=== PATIENT | female | born 1950 | race Caucasian/White ===

== ENCOUNTER 2019-08-01 11:09 | Emergency (ER) | payer MEDICARE, MEDICAID, SELFPAY ==
--- NOTE | 2019-08-01 11:12 | ED_ITS ---
HPI - Abdominal Pain General: Chief Complaint: Abdominal Pain Stated Complaint: ABD PAIN Time Seen by Provider: 08/01/19 11:12 Source: patient Mode of arrival: ambulatory Limitations: no limitations History of Present Illness: HPI narrative: Patient is a 68-year-old female who presents to ED today with complaints of nausea and vomiting over the past week. Patient tells me she is not able to hold much down including her medications. Patient states she has not noticed any blood in her vomit. She states she is defecating and urinating normally however she has noticed some black stools that she attributes to Pepto use. She reports pain to her epigastric region. She does tell me she has a history of a hiatal hernia. Has not been running fevers. Patient tells me that she gets a upset stomach often and will sometimes have nausea and vomiting however it never lasts this long. Patient is not able to tell me any of her past medical history nor any of the medications that she takes or why. MD elicited complaint: abdominal pain and other (N/V) Onset (ago): day(s) Location: Epigastric Associated Symptoms: Reports nausea, vomiting and other (does report black stools from Pepto use); Denies change in bowel habits, chills, constipation, diarrhea, dysuria, excessive flatus, fever(s), hematochezia, fecal incontinence and syncope Review of Systems General: Reports: 10 or more systems reviewed and unremarkable except in HPI and below Const: Denies: fever, chills, body aches, change in appetite, change in weight, fatigue or malaise Eyes: Denies: change in vision, blurry vision or photophobia ENMT: Denies: throat pain, enlarged tonsils or painful swallowing Card: Reports: shortness of breath when lying down (chronic due to COPD); Denies: chest pain, palpitations, irregular heart rhythm, edema, swelling of feet/ankles, lightheadedness, syncope or pre-syncope Resp: Denies: coughing up blood GI: Reports: abdominal pain, nausea, vomiting and other (does report black stools from Pepto use); Denies: diarrhea, constipation, excessive passing of gas, fecal incontinence, change in bowel habits, painful bowel movements, rectal pain, blood in stool, mucus in stool, white/light colored stool or fatty stool : Denies: flank pain, difficulty urinating, painful urination, urinary frequency, urinary urgency or urinary hesitancy Musc: Denies: neck pain or back pain Skin/Breast: Denies: rash Neuro: Denies: headache, numbness in extremities, weakness in extremities or changes in sensation PFSH ED PFSH: Social History Smoking and tobacco status: current every day smoker Physical Exam Const: COMMON NORMALS: no apparent distress, oriented x3, no limitations and alert NUTRITIONAL APPEARANCE: obese Resp: COMMON NORMALS: normal respiratory effort and clear to auscultation bilaterally AUSCULTATION: clear to auscultation bilaterally Cardio: COMMON NORMALS: regular rate and regular rhythm RATE: regular rate RHYTHM: regular rhythm GI: COMMON NORMALS: normal to inspection, nondistended, normoactive bowel sounds, soft to palpation, no hepatosplenomegaly and no masses PALPATION: Yes soft, Yes tender (mild LUQ) and Yes no hepatosplenomegaly RECTAL EXAM: heme negative stool : COMMON NORMALS: Yes no CVA tenderness BLADDER/KIDNEY EXAM: Yes no CVA tenderness Back/Pelvis: COMMON NORMALS: no CVA tenderness Extremity: COMMON NORMALS: normal to inspection Neuro: COMMON NORMALS: oriented x3 SENSORIUM/ORIENTATION: Yes alert Skin: COMMON NORMALS: no rashes or lesions noted GENERAL SKIN EXAM: no rashes or lesions noted Course Vital Signs: Vital signs: Vital Signs Temperature 98.3 F 08/01/19 11:19 Pulse Rate 107 H 08/01/19 13:56 Respiratory Rate 18 08/01/19 13:56 Blood Pressure 148/109 08/01/19 13:56 Pulse Oximetry 98 08/01/19 13:56 MDM - Abdominal Pain MDM Narrative: Medical decision making narrative: Patient feels better after IV fluids and IV Zofran as well as pain medications. Patient is requesting to go home. Patient was able to hold down p.o. fluids here without vomiting. On patient's lab she has a mildly elevated white count at 13.3, mild hypokalemia at 3.1-she was given p.o. replacement for this, and mildly elevated BUN/Cr at 37/2.1 (most recent for comparison was from 2017). Patient does tell me she has a history of stage III kidney disease. Patient CTs scan does not show any emergent process. Again patient is requesting to be discharged. Strict return to ED precautions given. She was already given a prescription for Zofran on her last PCP visit on 07/25 that she may use for nausea and vomiting. Lab Data: Labs: Lab Results 08/01/19 08/01/19 08/01/19 Range/Units 11:50 11:50 11:50 WBC 13.3 H (4.0-10.0) 10^3/ uL RBC 4.90 (4.1-5.3) 10^6/u L Hgb 13.1 (11.5-15.3) g/dL Hct 43.1 (37.0-47.0) % MCV 88.0 (81-99) fL MCH 26.7 L (28.0-34.0) pg MCHC 30.4 (30.0-36.0) g/dL RDW 16.1 H (12.1-15.1) % Plt Count 591 H (130-400) 10^3/c mm MPV 9.3 (7.4-10.4) fL Neut % (Auto) 83.4 % Lymph % (Auto) 8.7 % Mckean % (Auto) 6.3 % Eos % (Auto) 0.5 % Baso % (Auto) 0.3 % Neut # (Auto) 11.1 H (1.8-7.7) 10^3/u L Lymph # (Auto) 1.2 (0.8-4.8) 10^3/u L Mckean # (Auto) 0.8 (0.2-0.9) 10^3/u L Eos # (Auto) 0.1 (0.0-0.8) 10^3/u L Baso # (Auto) 0.0 (0.0-0.1) 10^3/u L Nucleated RBC % (a uto) 0.2 % Nucleated RBCs # 0.0 /100WBC Specimen Type Sample Site ABG pH (7.35-7.45) ABG pCO2 (35-45) mmHg ABG pO2 (80.0-100.0) mmH g ABG HCO3 (22-26) mmol/L ABG O2 Saturation ABG Base Excess (-2.0-2.0) mmol/ L Jarvis Test A-a O2 Gradient (5-10) mmHg Hematocrit (37-47) % Hgb O2 Saturation (95-100) % Carboxyhemoglobin (0.4-20.1) %THgb Methemoglobin (0.4-1.5) % Total Hemoglobin (12-16) g/dL Ionized Calcium (1.1-1.4) mmol/L O2 Delivery Device O2 Liters/Min % FiO2 % Charging Plug Placer ID Sodium 133 L (136-145) mmol/L Potassium 3.1 L (3.5-5.1) mmol/L Chloride 81 L (98-107) mmol/L Carbon Dioxide 35 H (22-29) mmol/L Anion Gap 20.1 H (5-19) BUN 37 H (8-23) mg/dL Creatinine 2.1 H (0.5-0.9) mg/dL GFR Calculation 23.4 L (90-130) mL/min Glucose 167 H (65-115) mg/dL Calculated Osmolal ity 277 L (285-295) mOsm/k g Calcium 9.5 (8.5-10.5) mg/dL Magnesium (1.7-2.3) mg/dL Total Bilirubin 0.4 (0.15-1.2) mg/dL AST 16 (0-32) U/L ALT 12 (0-33) U/L Alkaline Phosphata se 125 H (35-105) IU/L Total Protein 7.8 (6.6-8.7) g/dL Albumin 3.8 (3.5-5.2) g/dL Globulin 4.0 (1.3-4.6) g/dL Lipase 7 L (13-60) U/L Urine Color (Yellow) Urine Appearance (CLEAR) Urine pH (5-7) Ur Specific Gravit y (1.005-1.030) Urine Protein (Negative) Urine Glucose (UA) (Normal) Urine Ketones (Negative) Urine Blood (Negative) Urine Nitrate (Negative) Urine Bilirubin (NEGATIVE) Urine Urobilinogen (Negative) mg/dL Ur Leukocyte Lynette ase (Negative) Urine Opiates Scre en (Negative) ng/mL Ur Barbiturates Sc reen (Negative) ng/mL Ur Phencyclidine S crn (Negative) ng/mL Ur Amphetamines Sc reen (Negative) ng/mL U Benzodiazepines Scrn (Negative) ng/mL Urine Cocaine Scre en (Negative) ng/mL U Marijuana (THC) Screen (Negative) ng/mL Serum Ketones Negative (Negative) 08/01/19 08/01/19 08/01/19 Range/Units 11:50 13:07 14:04 WBC (4.0-10.0) 10^3/ uL RBC (4.1-5.3) 10^6/u L Hgb (11.5-15.3) g/dL Hct (37.0-47.0) % MCV (81-99) fL MCH (28.0-34.0) pg MCHC (30.0-36.0) g/dL RDW (12.1-15.1) % Plt Count (130-400) 10^3/c mm MPV (7.4-10.4) fL Neut % (Auto) % Lymph % (Auto) % Mckean % (Auto) % Eos % (Auto) % Baso % (Auto) % Neut # (Auto) (1.8-7.7) 10^3/u L Lymph # (Auto) (0.8-4.8) 10^3/u L Mckean # (Auto) (0.2-0.9) 10^3/u L Eos # (Auto) (0.0-0.8) 10^3/u L Baso # (Auto) (0.0-0.1) 10^3/u L Nucleated RBC % (a uto) % Nucleated RBCs # /100WBC Specimen Type Arterial Sample Site Brachial, left ABG pH 7.52 H (7.35-7.45) ABG pCO2 49.6 H (35-45) mmHg ABG pO2 104.0 H (80.0-100.0) mmH g ABG HCO3 40.1 H (22-26) mmol/L ABG O2 Saturation 96.5 ABG Base Excess 15.0 H (-2.0-2.0) mmol/ L Jarvis Test Pos A-a O2 Gradient 32.5 H (5-10) mmHg Hematocrit 40.1 (37-47) % Hgb O2 Saturation 94.9 L (95-100) % Carboxyhemoglobin 0.7 (0.4-20.1) %THgb Methemoglobin 1.0 (0.4-1.5) % Total Hemoglobin 13.1 (12-16) g/dL Ionized Calcium 1.1 (1.1-1.4) mmol/L O2 Delivery Device Nc O2 Liters/Min 2.0 % FiO2 28.0 % Charging Plug Placer ID cak Sodium 133.0 (136-145) mmol/L Potassium 2.7 L (3.5-5.1) mmol/L Chloride (98-107) mmol/L Carbon Dioxide (22-29) mmol/L Anion Gap (5-19) BUN (8-23) mg/dL Creatinine (0.5-0.9) mg/dL GFR Calculation (90-130) mL/min Glucose 120.0 H (65-115) mg/dL Calculated Osmolal ity (285-295) mOsm/k g Calcium (8.5-10.5) mg/dL Magnesium 3.4 H (1.7-2.3) mg/dL Total Bilirubin (0.15-1.2) mg/dL AST (0-32) U/L ALT (0-33) U/L Alkaline Phosphata se (35-105) IU/L Total Protein (6.6-8.7) g/dL Albumin (3.5-5.2) g/dL Globulin (1.3-4.6) g/dL Lipase (13-60) U/L Urine Color Yellow (Yellow) Urine Appearance Clear (CLEAR) Urine pH 7 (5-7) Ur Specific Gravit y 1.010 (1.005-1.030) Urine Protein Neg (Negative) Urine Glucose (UA) Norm (Normal) Urine Ketones 1+ H (Negative) Urine Blood Neg (Negative) Urine Nitrate Negative (Negative) Urine Bilirubin 1+ H (NEGATIVE) Urine Urobilinogen 1 H (Negative) mg/dL Ur Leukocyte Lynette ase Negative (Negative) Urine Opiates Scre en (Negative) ng/mL Ur Barbiturates Sc reen (Negative) ng/mL Ur Phencyclidine S crn (Negative) ng/mL Ur Amphetamines Sc reen (Negative) ng/mL U Benzodiazepines Scrn (Negative) ng/mL Urine Cocaine Scre en (Negative) ng/mL U Marijuana (THC) Screen (Negative) ng/mL Serum Ketones (Negative) 08/01/19 Range/Units 14:04 WBC (4.0-10.0) 10^3/ uL RBC (4.1-5.3) 10^6/u L Hgb (11.5-15.3) g/dL Hct (37.0-47.0) % MCV (81-99) fL MCH (28.0-34.0) pg MCHC (30.0-36.0) g/dL RDW (12.1-15.1) % Plt Count (130-400) 10^3/c mm MPV (7.4-10.4) fL Neut % (Auto) % Lymph % (Auto) % Mckean % (Auto) % Eos % (Auto) % Baso % (Auto) % Neut # (Auto) (1.8-7.7) 10^3/u L Lymph # (Auto) (0.8-4.8) 10^3/u L Mckean # (Auto) (0.2-0.9) 10^3/u L Eos # (Auto) (0.0-0.8) 10^3/u L Baso # (Auto) (0.0-0.1) 10^3/u L Nucleated RBC % (a uto) % Nucleated RBCs # /100WBC Specimen Type Sample Site ABG pH (7.35-7.45) ABG pCO2 (35-45) mmHg ABG pO2 (80.0-100.0) mmH g ABG HCO3 (22-26) mmol/L ABG O2 Saturation ABG Base Excess (-2.0-2.0) mmol/ L Jarvis Test A-a O2 Gradient (5-10) mmHg Hematocrit (37-47) % Hgb O2 Saturation (95-100) % Carboxyhemoglobin (0.4-20.1) %THgb Methemoglobin (0.4-1.5) % Total Hemoglobin (12-16) g/dL Ionized Calcium (1.1-1.4) mmol/L O2 Delivery Device O2 Liters/Min % FiO2 % Charging Plug Placer ID Sodium (136-145) mmol/L Potassium (3.5-5.1) mmol/L Chloride (98-107) mmol/L Carbon Dioxide (22-29) mmol/L Anion Gap (5-19) BUN (8-23) mg/dL Creatinine (0.5-0.9) mg/dL GFR Calculation (90-130) mL/min Glucose (65-115) mg/dL Calculated Osmolal ity (285-295) mOsm/k g Calcium (8.5-10.5) mg/dL Magnesium (1.7-2.3) mg/dL Total Bilirubin (0.15-1.2) mg/dL AST (0-32) U/L ALT (0-33) U/L Alkaline Phosphata se (35-105) IU/L Total Protein (6.6-8.7) g/dL Albumin (3.5-5.2) g/dL Globulin (1.3-4.6) g/dL Lipase (13-60) U/L Urine Color (Yellow) Urine Appearance (CLEAR) Urine pH (5-7) Ur Specific Gravit y (1.005-1.030) Urine Protein (Negative) Urine Glucose (UA) (Normal) Urine Ketones (Negative) Urine Blood (Negative) Urine Nitrate (Negative) Urine Bilirubin (NEGATIVE) Urine Urobilinogen (Negative) mg/dL Ur Leukocyte Lynette ase (Negative) Urine Opiates Scre en Positive H (Negative) ng/mL Ur Barbiturates Sc reen Negative (Negative) ng/mL Ur Phencyclidine S crn Negative (Negative) ng/mL Ur Amphetamines Sc reen Negative (Negative) ng/mL U Benzodiazepines Scrn Positive H (Negative) ng/mL Urine Cocaine Scre en Negative (Negative) ng/mL U Marijuana (THC) Screen Negative (Negative) ng/mL Serum Ketones (Negative) Imaging Data ^: CT Abd/Pel: Radiologist's impression: [place] [address] CT Scan Report Signed Patient: Nina Kang Unit #: [id number] : [id number] Age/Sex: 68 / F ADM Date: 08/01/19 Loc: ER Room/Bed: Attending Dr: Ordering Provider/Ordering MD: Marine Ace Date of Service: 08/01/19 Procedure(s): CT abdomen pelvis con [id number] Accession Number(s): [id number] Report Number: [id number] WS: [id number] CT ABDOMEN PELVIS TECHNIQUE: Noncontrast CT of the abdomen and pelvis with coronal and sagittal reformatted images. CLINICAL INFORMATION: upper abdominal pain; N/V COMPARISON: None. DLP: 1716.[address] scans at [facility] use at least one of these dose optimization techniques: automated exposure control; mA and/or kV adjustment per patient size (includes targeted exams where dose is matched to clinical indication); or iterative reconstruction. FINDINGS: Cholecystectomy with physiologic extra hepatic biliary ductal dilatation unchanged. Prior hysterectomy. Surgical clips at the GE junction consistent with prior hiatal hernia repair. Low- attenuation lesion involving the right hepatic lobe at the falciform ligament measuring 2.0 x 2.3 cm likely represents hepatic cyst or hemangioma. This is new from 2017 and could be followed up with ultrasound. Diffuse fatty atrophy of the pancreas. Stable 14 mm right adrenal adenoma. Left adrenal gland is normal. No hydronephrosis. Emphysematous changes in the lung bases. Chronic fibrosis in both lung bases. Normal caliber abdominal aorta. Mild aortic calcification. Normal sigmoid colon. Prior appendectomy. No evidence of small or large bowel obstruction. No periaortic or pelvic lymphadenopathy. No inguinal lymphadenopathy. CT/CT abdomen pelvis wo con [id number] IMPRESSION: 1. Sigmoid colon is normal in appearance. No evidence of small or large bowel obstruction. 2. No free fluid in the abdomen or pelvis. 3. Prior cholecystectomy with stable extrahepatic biliary ductal dilatation. 4. Stable small right adrenal adenoma. 5. Diffuse fatty atrophy of the pancreas unchanged. 6. Low-attenuation lesion in the right hepatic lobe adjacent to the falciform ligament may represent hepatic cyst or hemangioma measuring 2.3 x 2.0 cm. This can be followed up with ultrasound. Dictated By: Jose Alejandro Neville MD Signed By: Jose Alejandro Neville MD Signed Date/Time: 08/01/19 1418 DD/ 1406 Discharge Plan Discharge Patient Disposition: Home, Self-Care Clinical Impression: Nausea and vomiting Qualifiers: Vomiting type: unspecified Vomiting Intractability: non-intractable Qualified Code(s): R11.2 - Nausea with vomiting, unspecified Condition: Stable Prescriptions: No Action metolazone 2.5 mg Tablet 2.5 mg PO DAILY RF: 0 fentanyl 50 mcg/hr Patch 72 Hour 1 patch TRANSDERMAL Q72H RF: 0 albuterol sulfate 2.5 mg /3 mL (0.083 %) Solution For Nebulization 2.5 mg INHALATION Q4H PRN (Reason: Shortness Of Breath) RF: 0 hydrocodone-acetaminophen 5-325 mg Tablet 1 tab PO Q6H PRN (Reason: Pain) RF: 0 Cartia XT 240 mg Capsule,Extended Release 24hr 240 mg PO DAILY RF: 0 Zofran 4 mg Tablet 4 mg PO Q8H PRN (Reason: Nausea) RF: 0 gabapentin 400 mg Capsule 400 mg PO BID RF: 0 levothyroxine 75 mcg Tablet 75 mcg PO DAILY RF: 0 prednisone 2.5 mg Tablet 2.5 mg PO DAILY RF: 0 pantoprazole 40 mg Tablet,Delayed Release (Dr/Ec) 40 mg PO DAILY RF: 0 Nitrostat 0.4 mg Tablet, Sublingual 0.4 mg SUBLINGUAL Q5M PRN (Reason: Chest Pain) RF: 0 Cartia XT 120 mg Capsule,Extended Release 24hr 120 mg PO DAILY RF: 0 montelukast 10 mg Tablet 10 mg PO DAILY RF: 0 Lasix 20 mg Tablet 20 mg PO DAILY RF: 0 Ativan 1 mg Tablet 1 mg PO Q6H PRN (Reason: Anxiety) RF: 0 simethicone 125 mg Tablet 125 mg PO DAILY PRN (Reason: Gastric Reflux) RF: 0 fluticasone propionate 50 mcg/actuation Roy,Suspension 1 spray INTRANASAL BID RF: 0 duloxetine 60 mg Capsule,Delayed Release(Dr/Ec) 60 mg PO DAILY RF: 0 Breo Ellipta 100-25 mcg/dose Blister With Device 1 inh INHALATION DAILY RF: 0 potassium chloride 20 mEq Tablet Extended Release 20 meq PO DAILY RF: 0 Discharge Orders: Discharge Order (Routine); Ordered 08/01/19 Ordered By: Marine Ace Referrals: Diomedes Wei DO [Primary Care Provider] - Grady Rodriguez MD [Family Provider] - Discharge Diet: Usual diet Discharge Activity: Increase activity as tolerated Patient Instructions: Acute Nausea and Vomiting (ED) Activity Restrictions/Additional Instructions: Try taking one of your Zofran tablets 15 to 20 minutes prior to drinking or eating to help with nausea and vomiting. Please follow-up with your PCP in 3 to 5 days if symptoms still persist. Coding Level of Care Code ED Financial Services Consultant for Chg Fwd Exam Detailed
[2019-08-01 11:14] VITALS: BMI 46.0
[2019-08-01 11:19] VITALS: BP 133/95; PULSE 94; RESP 18; TEMP 36.8; O2SAT 94
[2019-08-01 11:57] LABS: Basophils % 0.3 %; Eosinophils # 0.1 10^3/uL (0.0-0.8); Eosinophils % 0.5 %; Hematocrit 43.1 % (37.0-47.0); Hemoglobin 13.1 g/dL (11.5-15.3); Lymphocytes # 1.2 10^3/uL (0.8-4.8); Lymphocytes % 8.7 %; Mean Corpuscular HGB Conc 30.4 g/dL (30.0-36.0); Mean Corpuscular Hemoglobin 26.7 pg (28.0-34.0); Mean Platelet Volume 9.3 fL (7.4-10.4); Monocytes # 0.8 10^3/uL (0.2-0.9); Monocytes % 6.3 %; Neutrophils # 11.1 10^3/uL (1.8-7.7); Neutrophils % 83.4 %; Nucleated Red Blood Cells % 0.2 %; Platelet Count 591 10^3/cmm (130-400); Red Cell Distribution Width 16.1 % (12.1-15.1); White Blood Count 13.3 10^3/uL (4.0-10.0)
[2019-08-01 12:12] LABS: Alanine Aminotransferase 12 U/L (0-33); Albumin Level 3.8 g/dL (3.5-5.2); Alkaline Phosphatase 125 IU/L (35-105); Anion Gap 20.1 (5-19); Aspartate Amino Transferase 16 U/L (0-32); Blood Urea Nitrogen 37 mg/dL (8-23); Calcium 9.5 mg/dL (8.5-10.5); Carbon Dioxide 35 mmol/L (22-29); Chloride 81 mmol/L (98-107); Glomerular Filtration Rate 23.4 mL/min (90-130); Glucose 167 mg/dL (65-115); Lipase 7 U/L (13-60); Osmolality Calculated 277 mOsm/kg (285-295); Potassium 3.1 mmol/L (3.5-5.1); Sodium 133 mmol/L (136-145); Total Bilirubin 0.4 mg/dL (0.15-1.2); Total Protein 7.8 g/dL (6.6-8.7)
--- NOTE | 2019-08-01 12:12 | PC.NURSE ---
ATEMPTED TO START IV X2 WITHOUT SUCCESS. ANOTHER NURSE TO ATTEMPT. REPORT TO [facility] TURNED OVER
--- NOTE | 2019-08-01 12:17 | CT_ITS ---
WS: [id number] CT ABDOMEN PELVIS TECHNIQUE: Noncontrast CT of the abdomen and pelvis with coronal and sagittal reformatted images. CLINICAL INFORMATION: upper abdominal pain; N/V COMPARISON: None. DLP: 1716.[address] scans at [facility] use at least one of these dose optimization techniques: automat ed exposure control; mA and/or kV adjustment per patient size (includes targeted exams where dose is matched to clinical indication); or iterative reconstruction. FINDINGS: Cholecystectomy with physiologic extra hepatic biliary ductal dilatation unchanged. Prior hysterectom y. Surgical clips at the GE junction consistent with prior hiatal hernia repair. Low-attenuation lesi on involving the right hepatic lobe at the falciform ligament measuring 2.0 x 2.3 cm likely represent s hepatic cyst or hemangioma. This is new from 2017 and could be followed up with ultrasound. Diffuse fatty atrophy of the pancreas. Stable 14 mm right adrenal adenoma. Left adrenal gland is norm al. No hydronephrosis. Emphysematous changes in the lung bases. Chronic fibrosis in both lung bases. Normal caliber abdomina l aorta. Mild aortic calcification. Normal sigmoid colon. Prior appendectomy. No evidence of small or large bowel obstruction. No periaortic or pelvic lymphadenopathy. No inguinal lymphadenopathy. CT/CT abdomen pelvis wo con [id number] IMPRESSION: 1. Sigmoid colon is normal in appearance. No evidence of small or large bowel obstruction. 2. No free fluid in the abdomen or pelvis. 3. Prior cholecystectomy with stable extrahepatic biliary ductal dilatation. 4. Stable small right adrenal adenoma. 5. Diffuse fatty atrophy of the pancreas unchanged. 6. Low-attenuation lesion in the right hepatic lobe adjacent to the falciform ligament may represent hepatic cyst or hemangioma measuring 2.3 x 2.0 cm. This can be followed up with ultrasound.
[2019-08-01 12:43] LABS: Ketone (Acetest) Serum Negative (Negative)
[2019-08-01 12:50] LABS: Magnesium 3.4 mg/dL (1.7-2.3)
[2019-08-01] MEDS: ondansetron 2 mg/ML SDV 2 mL 4 MG IVP (13:05)
[2019-08-01] MEDS: morphine 4 mg/mL SDV 1 mL IVP (13:05)
[2019-08-01] MEDS: sodium chloride 0.9% 1,000 ML 999 ML IV (13:05)
[2019-08-01 13:19] LABS: ABG PCO2 49.6 mmHg (35-45); ABG PH Result 7.52 (7.35-7.45); Alveolar-Arterial Oxygen Gradi 32.5 mmHg (5-10); Arterial Blood Gas Hematocrit 40.1 % (37-47); Blood Gas Allen Test Pos; Blood Gas Sample Site Brachial, left; Blood Gas Sample Type Arterial; Carboxyhemoglobin 0.7 %THgb (0.4-20.1); HCO3 ABG 40.1 mmol/L (22-26); HGB O2 Sat 94.9 % (95-100); Ionized Calcium Level - ABG 1.1 mmol/L (1.1-1.4); Oxygen Device NC; Oxygen Saturation ABG 96.5; Potassium Level - ABG 2.7 mmol/L (3.5-5.0); Total Hemoglobin 13.1 g/dL (12-16)
[2019-08-01 13:56] VITALS: BP 148/109; PULSE 107; RESP 18; O2SAT 98
[2019-08-01 14:22] LABS: Add Urine Microscopic? NO
[2019-08-01 14:42] LABS: Amphetamines Screen Urine Negative (Negative); Barbiturates Screen Urine Negative (Negative); Benzodiazepines Screen Urine Positive (Negative); Cocaine Screen Urine Negative (Negative); Opiate Screen Urine Positive (Negative); PCP Screen Urine Negative (Negative); THC Screen Urine Negative (Negative)
[2019-08-01 14:52] LABS: Bilirubin Urine 1+ (NEGATIVE); Blood Urine Neg (Negative); Glucose Urine UA Norm (Normal); Ketones Urine 1+ (Negative); Leukocyte Esterase Urine Negative (Negative); Nitrate Urine Negative (Negative); Protein Urine Neg (Negative); Urine Appearance Clear (CLEAR); Urine Color Yellow (Yellow); Urobilinogen Urine 1 mg/dL (Negative); pH Urine 7 (5-7)
[2019-08-01 15:38] VITALS: BP 112/86; PULSE 105; RESP 18; O2SAT 96
== END 2019-08-01 16:17 | disposition home or self-care (01) ==
PROVIDERS: Emergency Provider Physician Assistant; Family Provider Family Medicine; PCP Family Medicine
DX: R11.2 Nausea with vomiting, unspecified (principal); E87.6 Hypokalemia; N18.3 Chronic kidney disease, stage 3 (moderate); F17.200 Nicotine dependence, unspecified, uncomplicated
CPT/HCPCS: 12345; 36415; 36600; 74176; 80051; 80053; 80306; 81003; 82009; 82810; 83690; 83735; 83986; 85025; 96361; 96374; 96375; 99283; J2270; J2405; J7030

== ENCOUNTER 2019-08-19 06:51 | Inpatient (IN) | payer MEDICARE, MEDICAID, SELFPAY ==
[2019-08-19] VITALS (17 sets, daily range): BP systolic 99–133; BP diastolic 62–88; PULSE 98–130; RESP 16–26; TEMP 36.4–36.8; O2SAT 94–100; BMI 45.4
--- NOTE | 2019-08-19 07:01 | ED_ITS ---
HPI - Abdominal Pain General: Chief Complaint: Abdominal Pain Stated Complaint: ABD PAIN Time Seen by Provider: 08/19/19 07:01 History of Present Illness: HPI narrative: 68-year-old female presents with complaints of 3 days of nausea and vomiting. She is not had a bowel movement for the last 4 to 5 days. She denies any hematochezia or melena she denies any fever she has noted some dysuria and urgency of urination. She localizes pain to the left side generally a little bit more to the left lower quadrant. She denies any hematemesis coffee-ground emesis or melena. She has had a cough is been mildly productive this is chronic and her sputum has not changed in color or character. She denies a fever. MD elicited complaint: abdominal pain Associated Symptoms: Reports dysuria, nausea and vomiting; Denies bloating, chills, coffee ground emesis, constipation, diarrhea, fever(s), hematochezia, hematemesis and melena Review of Systems Const: Denies: fever, chills, body aches, change in appetite, fatigue or malaise ENMT: Denies: throat pain, ear pain, nasal discharge or nasal congestion Card: Denies: chest pain, edema, shortness of breath on exertion or shortness of breath when lying down Resp: Denies: shortness of breath, productive cough or non-productive cough GI: Reports: abdominal pain, nausea and vomiting; Denies: vomiting blood, coffee grounds in vomit, diarrhea, constipation, bloa ting, blood in stool or black tarry stool : Reports: painful urination and urinary frequency; Denies: flank pain, difficulty urinating or urinary urgency Skin/Breast: Denies: rash or itching PFSH ED PFSH: Medical History Afib Arm fracture CHF (congestive heart failure) Depression with anxiety GERD (gastroesophageal reflux disease) Gout Hiatal hernia HTN (hypertension) Hypothyroidism IBS (irritable bowel syndrome) Nasal sinus polyp UTI (urinary tract infection) Surgical History H/O hernia repair H/O sinus surgery History of appendectomy History of cholecystectomy History of hysterectomy History of tonsillectomy and adenoidectomy Family History Father CAD (coronary artery disease) Cancer Social History Smoking and tobacco status: current every day smoker cigarettes Years cigarettes smoked: 54 Quit status (tobacco): not considering quitting Alcohol intake: never Caregiver/support person: Yes Lives independently: Yes Household members: none Marital status: / Current occupational status: retired and disabled History of recent travel: No Current gender identity: Female Physical Exam Const: COMMON NORMALS: no apparent distress GENERAL APPEARANCE: cooperative and comfortable ORIENTATION/CONSCIOUSNESS: Yes awake, Yes oriented to person, Yes oriented to place and Yes oriented to time HENMT: COMMON NORMALS: normocephalic, head/scalp atraumatic, hearing grossly normal bilaterally, external ears normal, EAC's normal, TM's normal bilaterally, nasal mucous membranes and turbinates normal, moist oral mucous membranes and oropharynx normal HEAD & SCALP: normocephalic and atraumatic NOSE: nasal mucous membranes and turbinates normal EXTERNAL EAR: Yes external ears normal EXTERNAL AUDITORY CANAL: EAC's normal TYMPANIC MEMBRANE: TM's normal bilaterally Eye: COMMON NORMALS: PERRL, EOMs intact bilaterally, conjunctivae normal and no scleral icterus CONJUNCTIVA: Yes conjunctivae normal PUPIL: Yes PERRL Neck/C-Spine: COMMON NORMALS: full ROM, no lymphadenopathy, supple and no JVD Lymph: LYMPHATIC: no lymphadenopathy noted and no lymphedema noted Resp: COMMON NORMALS: normal respiratory effort, no retractions, no use of accessory muscles and clear to auscultation bilaterally AUSCULTATION: clear to auscultation bilaterally Cardio: COMMON NORMALS: no JVD, regular rate, regular rhythm and no murmurs RATE: regular rate RHYTHM: regular rhythm GI: COMMON NORMALS: soft to palpation and no hepatosplenomegaly AUSCULTATI ON: Yes absent bowel sounds PALPATION: Yes soft, Yes tender, No guarding, No rigid and Yes no hepatosplenomegaly Extremity: COMMON NORMALS: normal to inspection, normal capillary refill, no clubbing, cyanosis or edema, no calf tenderness and no pedal edema Neuro: SENSORIUM/ORIENTATION: Yes oriented to person, Yes oriented to place and Yes oriented to time Skin: COMMON NORMALS: no rashes or lesions noted GENERAL SKIN EXAM: no rashes or lesions noted Course Vital Signs: Vital signs: Vital Signs Temperature 97.6 F 08/21/19 04:00 Pulse Rate 81 08/21/19 04:00 Respiratory Rate 17 08/21/19 04:00 Blood Pressure 123/72 08/21/19 04:00 Pulse Oximetry 97 08/21/19 04:00 MDM - Abdominal Pain MDM Narrative: Medical decision making narrative: Fluids and antiemetics given despite this patient not able to keep any p.o. fluids and will go ahead and admit for persistent nausea and vomiting can [place] to her pyelonephritis.. Lab Data: Labs: Lab Results 08/19/19 08/19/19 08/19/19 Range/Units 07:37 07:37 07:37 WBC 12.5 H (4.0-10.0) 10^3/ uL RBC 5.23 (4.1-5.3) 10^6/u L Hgb 13.2 (11.5-15.3) g/dL Hct 43.7 (37.0-47.0) % MCV 83.6 (81-99) fL MCH 25.2 L (28.0-34.0) pg MCHC 30.2 (30.0-36.0) g/dL RDW 16.0 H (12.1-15.1) % Plt Count 517 H (130-400) 10^3/c mm MPV 9.7 (7.4-10.4) fL Neut % (Auto) 74.2 % Lymph % (Auto) 14.3 % [place] % (Auto) 7.5 % Eos % (Auto) 2.6 % Baso % (Auto) 0.6 % Neut # (Auto) 9.3 H (1.8-7.7) 10^3/u L Lymph # (Auto) 1.8 (0.8-4.8) 10^3/u L [place] # (Auto) 0.9 (0.2-0.9) 10^3/u L Eos # (Auto) 0.3 (0.0-0.8) 10^3/u L Baso # (Auto) 0.1 (0.0-0.1) 10^3/u L Nucleated RBC % (a uto) 0 % Nucleated RBCs # 0.0 /100WBC Sodium 134 L (136-145) mmol/L Potassium 3.0 L (3.5-5.1) mmol/L Chloride 79 L (98-107) mmol/L Carbon Dioxide 38 H (22-29) mmol/L Anion Gap 20.0 H (5-19) BUN 59 H (8-23) mg/dL Creatinine 2.9 H (0.5-0.9) mg/dL GFR Calculation 16.1 L (90-130) mL/min Glucose 152 H (65-115) mg/dL Calculated Osmolal ity 280 L (285-295) mOsm/k g Calcium 8.9 (8.5-10.5) mg/dL Total Bilirubin 0.4 (0.15-1.2) mg/dL AST 17 (0-32) U/L ALT 17 (0-33) U/L Alkaline Phosphata se 145 H (35-105) IU/L NT-Pro-B Natriuret Pep 461 H (0-125) pg/mL Total Protein 7.1 (6.6-8.7) g/dL Albumin 3.8 (3.5-5.2) g/dL Globulin 3.3 (1.3-4.6) g/dL Lipase 9 L (13-60) U/L Urine Color (Yellow) Urine Appearance (CLEAR) Urine pH (5-7) Ur Specific Gravit y (1.005-1.030) Urine Protein (Negative) Urine Glucose (UA) (Normal) Urine Ketones (Negative) Urine Blood (Negative) Urine Nitrate (Negative) Urine Bilirubin (NEGATIVE) Urine Urobilinogen (Negative) mg/dL Ur Leukocyte Lynette ase (Negative) Urine RBC (0-2) /hpf Urine WBC (0-5) /hpf Ur Squamous Epith Cells (0-5) Urine Bacteria (NONE) 08/19/19 Range/Units 07:56 WBC (4.0-10.0) 10^3/ uL RBC (4.1-5.3) 10^6/u L Hgb (11.5-15.3) g/dL Hct (37.0-47.0) % MCV (81-99) fL MCH (28.0-34.0) pg MCHC (30.0-36.0) g/dL RDW (12.1-15.1) % Plt Count (130-400) 10^3/c mm MPV (7.4-10.4) fL Neut % (Auto) % Lymph % (Auto) % [place] % (Auto) % Eos % (Auto) % Baso % (Auto) % Neut # (Auto) (1.8-7.7) 10^3/u L Lymph # (Auto) (0.8-4.8) 10^3/u L [place] # (Auto) (0.2-0.9) 10^3/u L Eos # (Auto) (0.0-0.8) 10^3/u L Baso # (Auto) (0.0-0.1) 10^3/u L Nucleated RBC % (a uto) % Nucleated RBCs # /100WBC Sodium (136-145) mmol/L Potassium (3.5-5.1) mmol/L Chloride (98-107) mmol/L Carbon Dioxide (22-29) mmol/L Anion Gap (5-19) BUN (8-23) mg/dL Creatinine (0.5-0.9) mg/dL GFR Calculation (90-130) mL/min Glucose (65-115) mg/dL Calculated Osmolal ity (285-295) mOsm/k g Calcium (8.5-10.5) mg/dL Total Bilirubin (0.15-1.2) mg/dL AST (0-32) U/L ALT (0-33) U/L Alkaline Phosphata se (35-105) IU/L NT-Pro-B Natriuret Pep (0-125) pg/mL Total Protein (6.6-8.7) g/dL Albumin (3.5-5.2) g/dL Globulin (1.3-4.6) g/dL Lipase (13-60) U/L Urine Color Yellow (Yellow) Urine Appearance Sl cloudy A (CLEAR) Urine pH 7 (5-7) Ur Specific Gravit y 1.005 (1.005-1.030) Urine Protein Trace (Negative) Urine Glucose (UA) Norm (Normal) Urine Ketones 1+ H (Negative) Urine Blood 2+ H (Negative) Urine Nitrate Positive H (Negative) Urine Bilirubin 2+ H (NEGATIVE) Urine Urobilinogen Norm (Negative) mg/dL Ur Leukocyte Lynette ase 2+ H (Negative) Urine RBC 10-15 H (0-2) /hpf Urine WBC Too numerous to c nt H (0-5) /hpf Ur Squamous Epith Cells None (0-5) Urine Bacteria 4+ H (NONE) Discharge Plan Discharge Patient Disposition: Admitted As Inpatient Admit Provider: Abby Coyne Clinical Impression: Pyelonephritis, COPD (chronic obstructive pulmonary disease), Intractable nausea and vomiting Condition: Stable Interventions: ED Discharge Assessment Last Done: 08/19/19 10:04 Discharge Date/Time: 08/19/19 10:09 Coding Level of Care Code ED Filleter for Chg Fwd Exam Comprehensive
--- NOTE | 2019-08-19 07:16 | CTR_ITS ---
PROCEDURE INFORMATION: Exam: CT Abdomen And Pelvis Without Contrast Exam date and time: 08/19/2019 8:08 AM Age: 68 years old Clinical indication: Constipation and nausea and vomiting; Prior surgery; Surgery date: 6+ months; Surgery type: Gb, hysto; Additional info: Abd pain TECHNIQUE: Imaging protocol: Computed tomography of the abdomen and pelvis without contrast. Total DLP: 1210.83 mGy-cm Radiation optimization: All CT scans at this facility use at least one of these dose optimization techniques: automated exposure control; mA and/or kV adjustment per patient size (includes targeted exams where dose is matched to clinical indication); or iterative reconstruction. COMPARISON: CT abdomen pelvis wo con [id number] 08/01/2019 1:38 PM FINDINGS: Detailed evaluation of the abdominal and pelvic viscera is somewhat limited in the absence of intravenous contrast. Lungs: Interstitial disease. Small hiatal hernia. Liver: Fatty infiltration of the liver and stable hypodensity about the falciform ligament. Gallbladder and bile ducts: Status post cholecystectomy with stable biliary ductal dilatation. Pancreas: Pancreatic atrophy. Spleen: No splenomegaly. Adrenals: Stable right adrenal nodularity. Kidneys and ureters: Stable 7 mm nodular hypodense lesion arising from the inferior lateral aspect of the left kidney which is too small to accurately characterize. No hydronephrosis. Stomach and bowel: No significant small bowel dilatation. Prominent stool. Mild right colonic wall thickening. Appendix: Appendix not visualized. Intraperitoneal space: No significant free fluid. Vasculature: Vascular calcification. Normal caliber of the abdominal aorta. Lymph nodes: No pathologically enlarged lymph nodes. Bladder: Nondistended bladder. Reproductive: Status post hysterectomy. Bones/joints: Osteopenia and degenerative change. Soft tissues: Small fat containing umbilical hernia. Injection granulomata. When correlating with the previous study, no significant interval changes are present. . CT/CT abdomen pelvis wo con [id number] IMPRESSION: Stable appearance of the abdomen/pelvis, not significantly changed from 08/01/2019 . Radiation Dose CTDIVOL = (mGy): DLP = 1210.83 (mGy-cm)
[2019-08-19] MEDS: sodium chloride 0.9% 500 ML 999 ML IV (07:34)
[2019-08-19] MEDS: morphine 4 mg/mL SDV 1 mL 2 MG IVP ×3 (07:34→16:53)
[2019-08-19] MEDS: ondansetron 2 mg/ML SDV 2 mL 4 MG IVP ×4 (07:34→23:44)
[2019-08-19 07:44] LABS: Basophils # 0.1 10^3/uL (0.0-0.1); Basophils % 0.6 %; Eosinophils # 0.3 10^3/uL (0.0-0.8); Eosinophils % 2.6 %; Hematocrit 43.7 % (37.0-47.0); Hemoglobin 13.2 g/dL (11.5-15.3); Lymphocytes # 1.8 10^3/uL (0.8-4.8); Lymphocytes % 14.3 %; Mean Corpuscular HGB Conc 30.2 g/dL (30.0-36.0); Mean Corpuscular Hemoglobin 25.2 pg (28.0-34.0); Mean Corpuscular Volume 83.6 fL (81-99); Mean Platelet Volume 9.7 fL (7.4-10.4); Monocytes # 0.9 10^3/uL (0.2-0.9); Monocytes % 7.5 %; Neutrophils # 9.3 10^3/uL (1.8-7.7); Neutrophils % 74.2 %; Nucleated Red Blood Cells % 0 %; Platelet Count 517 10^3/cmm (130-400); Red Blood Count 5.23 10^6/uL (4.1-5.3); White Blood Count 12.5 10^3/uL (4.0-10.0)
[2019-08-19 08:02] LABS: Alanine Aminotransferase 17 U/L (0-33); Albumin Level 3.8 g/dL (3.5-5.2); Alkaline Phosphatase 145 IU/L (35-105); Aspartate Amino Transferase 17 U/L (0-32); Blood Urea Nitrogen 59 mg/dL (8-23); Calcium 8.9 mg/dL (8.5-10.5); Carbon Dioxide 38 mmol/L (22-29); Chloride 79 mmol/L (98-107); Globulin 3.3 g/dL (1.3-4.6); Glomerular Filtration Rate 16.1 mL/min (90-130); Glucose 152 mg/dL (65-115); Lipase 9 U/L (13-60); Osmolality Calculated 280 mOsm/kg (285-295); Sodium 134 mmol/L (136-145); Total Bilirubin 0.4 mg/dL (0.15-1.2); Total Protein 7.1 g/dL (6.6-8.7)
[2019-08-19 08:17] LABS: Glucose Urine UA Norm (Normal); Ketones Urine 1+ (Negative); Protein Urine Trace (Negative); Specific Gravity, Urine 1.005 (1.005-1.030); Urine Color Yellow (Yellow); pH Urine 7 (5-7)
[2019-08-19 08:18] LABS: Add Urine Culture? Yes; Add Urine Microscopic? YES; Bacteria Urine 4+; Bilirubin Urine 2+ (NEGATIVE); Blood Urine 2+ (Negative); Leukocyte Esterase Urine 2+ (Negative); Nitrate Urine Positive (Negative); Urobilinogen Urine Norm (Negative); WBC Urine TOO NUMEROUS TO CNT /hpf (0-5)
[2019-08-19] MEDS: cefTRIAXone 1,000 MG in sodium chloride 0.9% (plus) 50 ML 100 MG IV (08:55)
[2019-08-19] MEDS: LORazepam 2 mg/mL INJ 1 mL 1 MG IVP (09:10)
[2019-08-19] MEDS: potassium chloride premix 40 MEQ/100 ML PREMIX 25 MEQ IV (09:24)
[2019-08-19] MEDS: sodium chlor 0.9% + KCl 20 mEq 20 MEQ/1,000 ML BAG 125 MEQ IV (09:26)
[2019-08-19] MEDS: lidocaine 1% INJ 20 mL 5 ML IV (09:35)
[2019-08-19] MEDS: D5-NS 0.45% + KCL 20 mEq 20 MEQ/1,000 ML BAG 100 MEQ IV (10:55)
[2019-08-19] MEDS: acetaminophen 325 mg Tablet 650 MG PO (11:23)
--- NOTE | 2019-08-19 12:25 | P.HP_ITS ---
Providers/Chief Complaint Admitting Physician: Abby Coyne MD Primary Care Provider: Diomedes Wei DO Chief Complaint: PYELNOEPHRTITIS History of Present Illness Nian Kang is a 68 year old female with PMH COPD on home 02 at 3lpm, CHF on diuretics, chronic pain who presented to the ER today with c/o multiple episodes of vomiting, back and abdominal pain and burning micturition over the last 3 days. She was in her usual state of health prior to this. Clinically appears to have CVA tenderness and labs notable for leukocytosis, LAURA and +UA. no h/o recurrent UTIs. past urine cx from few years ago with herrera-s proteus Review of Systems General: Reports: 10 or more systems reviewed and unremarkable except in HPI and below Const: Denies: fever, chills or body aches Eyes: Denies: change in vision, blurry vision or photophobia ENMT: Reports: hoarseness; Denies: throat pain, enlarged tonsils, painful swallowing or nasal congestion Card: Denies: chest pain, palpitations, irregular heart rhythm, edema, swelling of feet/ankles, lightheadedness, pre-syncope, shortness of breath on exertion or shortness of breath when lying down Resp: Denies: shortness of breath, productive cough, non-productive cough, wheezing, stridor, pain on inspiration, change in phlegm color, coughing up blood or chest congestion GI: Denies: abdominal pain, nausea, vomiting, vomiting blood, coffee grounds in vomit, difficulty swallowing, heartburn/indigestion, diarrhea, constipation, cramping, change in stool character, blood in stool or black tarry stool : Denies: flank pain, difficulty urinating, painful urination, urinary frequency, urinary urgency, urinary hesitancy or blood in urine Musc: Denies: neck pain, back pain, extremity pain, joint swelling, joint warmth or deformity Neuro: Denies: headache, numbness in extremities, weakness in extremities, gautam nges in sensation, difficulty walking, frequent falls, dizziness, vertigo, behavioral changes, slurred speech or seizure-like activity Psych: Denies: anxiety, depression, suicidal ideation or homicidal ideation Endo: Denies: excessive urination, excessive thirst, tired all the time, cold intolerance or hot flashes Festus/Lymph: Denies: easy bruising or easy bleeding Medications/Allergies Home Medications Medication Instructions Recorded Confirmed Last Taken Type albuterol sulfate 2.5 mg INHALATION Q4H PRN 08/01/19 08/19/19 Unknown History duloxetine 60 mg PO DAILY 08/01/19 08/19/19 07/31/19 History fentanyl 1 patch TRANSDERMAL Q72H 08/01/19 08/19/19 07/29/19 History fluticasone furoate-vilanterol 1 inh INHALATION DAILY 08/01/19 08/19/19 07/31/19 History [Breo Ellipta] fluticasone propionate 2 spray INTRANASAL DAILY 08/01/19 08/19/19 Unknown H istory furosemide [Lasix] 20 mg PO DAILY 08/01/19 08/19/19 07/31/19 History gabapentin 400 mg PO BID 08/01/19 08/19/19 07/31/19 History hydrocodone-acetaminophen 1 - 2 tab PO Q6H PRN 08/01/19 08/19/19 07/31/19 History levothyroxine 75 mcg PO DAILY 08/01/19 08/19/19 07/31/19 History lorazepam [Ativan] 1 mg PO Q6H PRN 08/01/19 08/19/19 Unknown History metolazone 2.5 mg PO DAILY 08/01/19 08/19/19 07/31/19 History montelukast 10 mg PO DAILY 08/01/19 08/19/19 07/31/19 History nitroglycerin [Nitrostat] 0.4 mg SUBLINGUAL Q5M PRN 08/01/19 08/19/19 Unknown History ondansetron HCl [Zofran] 4 mg PO Q8H PRN 08/01/19 08/19/19 Unknown History pantoprazole 40 mg PO DAILY 08/01/19 08/19/19 07/31/19 History potassium chloride 20 meq PO DAILY 08/01/19 08/19/19 07/31/19 History prednisone 2.5 mg PO DAILY 08/01/19 08/19/19 07/31/19 History simethicone 125 mg PO DAILY PRN 08/01/19 08/19/19 07/31/19 History ciprofloxacin HCl 500 mg tablet 500 mg PO BID 08/09/19 08/19/19 Unknown History lactobacillus combination no.9 4 See Rx Instructions .ROUTE .COMPLEX 08/09/19 08/19/19 Unknown History billion cell capsule tiotropium bromide 18 mcg capsule 1 cap INHALATION DAILY 08/09/19 08/19/19 Unknown History with inhalation device diltiazem HCl [Cartia XT] 120 mg PO DAILY 08/19/19 08/19/19 Unknown History Allergies Allergy/AdvReac Type Severity Reaction Status Date / Time meperidine [From Demerol] Allergy Unknown Verified 08/09/19 10:30 metoclopramide [From Reglan] Allergy Unknown Verified 08/09/19 10:30 Sulfa (Sulfonamide Allergy Unknown Verified 08/09/19 10:30 Antibiotics) tape Allergy ALGY-Rash Uncoded 08/09/19 10:30 PFSH Acute PFSH: Medical History Afib Arm fracture CHF (congestive heart failure) Depression with anxiety GERD (gastroesophageal reflux disease) Gout Hiatal hernia HTN (hypertension) Hypothyroidism IBS (irritable bowel syndrome) Nasal sinus polyp UTI (urinary tract infection) Surgical History H/O hernia repair H/O sinus surgery History of appendectomy History of cholecystectomy History of hysterectomy History of tonsillectomy and adenoidectomy Family History Father CAD (coronary artery disease) Cancer Social History Smoking and tobacco status: current every day smoker cigarettes Years cigarettes smoked: 54 Quit status (tobacco): not considering quitting Alcohol intake: never Caregiver/support person: Yes Lives independently: Yes Household members: none Marital status: / Current occupational status: retired and disabled History of recent travel: No Current gender identity: Female Vitals/I&O/Wt Last Vital Signs Temp 97.9 F 08/19/19 11:00 Pulse 98 08/19/19 11:00 Resp 18 08/19/19 11:00 BP 117/88 08/19/19 11:00 Pulse Ox 99 08/19/19 11:00 08/18/19 08/19/19 08/19/19 22:59 06:59 14:59 Intake Total 550 / 550 Balance 550 / 550 Weight last 48 hrs Weight 102.058 kg Physical Exam Narrative: EXAM NARRATIVE: GEN: Awake, alert and oriented, no acute distress CVS: S1S2 N RS: CTA B/L Abd: Soft, nt/nd , bs+ 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: no focal neuro deficits Data : 08/19/19 07:37 08/19/19 07:37 Micro: Microbiology 08/19/19 10:15 Blood Culture - Preliminary Blood SPECIMEN COLLECTED 08/19/19 10:10 Blood Culture - Preliminary Blood SPECIMEN COLLECTED A&P Assessment and plan (1) Sleep apnea: Status: Acute (2) COPD (chronic obstructive pulmonary disease): Status: Acute (3) Pyelonephritis: Status: Acute Additional A&P Information Admit to med/surg # R pyelonephritis : empiric zosyn renaally dosed await urine culture # LAURA : CT abdomen without acute urinary obstruction Bladder scan and straight cath if retaining Holding off on fluids for now given h/o CHF on diuretics #CHF: current;y appears to be fluid overloaded, iv lasix, hold metolazone for now # COPD, not currently exacerbated: duonebs, budesonide inhalation 02 titration RT eval and treat Full code DVT ppx: lovenox Attestations Medical Necessity Statement*: anticipate > 2midnight for iv abx, treatment of pyelonephritis Coding Level of Care Code Acute Soda Clerk for Chg Fwd Diagnoses Sleep apnea G47.30 COPD (chronic obstructive pulmonary disease) J44.9 Pyelonephritis N12
--- NOTE | 2019-08-19 13:20 | PC.CHAP ---
Pastoral Care Encounter/Spiritual Assessment Type of Contact [] Declined sociology instructor visit [] Patient/Family/Request visit [] Outpatient visit [] Follow-up visit [] Physician referral [] Code/Alert [X] Routine visit [] Staff referral [] Actively dying [] Patient sleeping [] Family support [] [] Out of room [] Palliative care [] [] Receiving care in room [] Pre-surgical visit [] Trauma [] Long length of stay [] ICU visit [] Other: Relational/Emotional Strength [] Patient feels connected with others/family/visitors/staff [] Distress [] Loneliness/isolation [] Abandonment Spirituality of Patient [] Person of Cris [] Attends Rastafari of their Cris [] Believes in Prayer [] Reads Bible or Restorationist materials [] There are Spiritual issues to be addressed Visual Developer Interventions [] Prayer [] Active listening [] Non-anxious presence [] Spiritual/emotional support [] Crisis/trauma care [] Spiritual counseling [] Bereavement support [] Provided bereavement packet [] Provided Bible/devotional materials [] Provided toy/stuffed animal, coloring book to patient or family member [] Provided Communion [] Anointing/[place] [] Salvation [] Completed spiritual assessment [] Other: Impact on Illness or Injury [] Angry [] Fearful [] Anxious [] Often cries [] Exhaustion [] Unable to work [] Unable to attend sikhism [] Unable to walk/stand [] Unable to read [] Unable to drive [] Unable to eat/drink [] Unable to sleep [] Unable to be with family [] Patient intubated [] Other: Summary Time spent with patient
--- NOTE | 2019-08-19 16:42 | ECG_ITS ---
Measurements Intervals [place] Rate: 109 P: 47 MS: 137 QRS: -11 QRSD: 93 T: 66 QT: 359 QTc: [address] & T-WAVE ABNORMALITY ABNORMAL RHYTHM ECG Compared to ECG 10/17/2015 23:52:29 Sinus rhythm no longer present T-wave abnormality still present Electronically Signed On 08-20-2019 20:25:27 CDT by Sherri Kemp M.D. [email or web address]
--- NOTE | 2019-08-19 16:42 | XRR_ITS ---
PROCEDURE INFORMATION: Exam: XR Chest, 1 View Exam date and time: 08/20/2019 5:29 AM Age: 68 years old Clinical indication: Shortness of breath; Additional info: Dyspnea TECHNIQUE: Imaging protocol: XR of the chest Views: 1 view. COMPARISON: CR Chest 2 views* [id number] 09/25/2016 8:54 AM FINDINGS: Heart size within normal limits. Mild patchy airspace opacities (atelectasis and/or consolidation) at bilateral lung bases, decreased from prior study. Mild interstitial opacities throughout both lungs, which may represent pulmonary vascular congestion or interstitial component of pneumonia. No visible pneumothorax or pleural effusion. XR/XR chest 1V portable [id number] IMPRESSION: 1. Mild patchy airspace opacities (atelectasis and/or consolidation) at bilateral lung bases, decreased from prior study. 2. Mild interstitial opacities throughout both lungs, which may represent pulmonary vascular congestion or interstitial component of pneumonia.
[2019-08-19] MEDS: gabapentin 400 mg Capsule PO (17:24)
[2019-08-19] MEDS: enoxaparin 30 mg/0.3 mL Syringe SUBCUT (17:24)
[2019-08-19] MEDS: FUROsemide 10 mg/mL SDV 4mL 40 MG IVP (17:24)
[2019-08-19 18:11] LABS: NT Pro B Type Natriuretic Pept 461 pg/mL (0-125)
[2019-08-19] MEDS: piperacillin-tazobactam 3.375 GM in sodium chloride 0.9% (plus) 50 ML IV (20:45)
[2019-08-19] MEDS: promethazine 25 mg Tablet 12.5 MG PO (20:51)
[2019-08-19] MEDS: ipratropium-albuterol 3 mL Neb INHALATION (20:58)
[2019-08-19] MEDS: budesonide 0.5 mg/2 mL Neb INHALATION (20:58)
[2019-08-19] MEDS: HYDROcodone-acetaminophen 5-325 mg Tablet PO (21:06)
[2019-08-20] VITALS (10 sets, daily range): BP systolic 113–140; BP diastolic 67–86; PULSE 90–116; RESP 16–20; TEMP 36.6–37.1; O2SAT 95–99
[2019-08-20] MEDS: piperacillin-tazobactam 3.375 GM in sodium chloride 0.9% (plus) 50 ML IV ×3 (04:35→19:58)
[2019-08-20 05:25] LABS: Basophils # 0.1 10^3/uL (0.0-0.1); Basophils % 0.7 %; Eosinophils # 0.4 10^3/uL (0.0-0.8); Eosinophils % 3.9 %; Hemoglobin 13.1 g/dL (11.5-15.3); Lymphocytes # 2.4 10^3/uL (0.8-4.8); Lymphocytes % 24.8 %; Mean Corpuscular HGB Conc 29.1 g/dL (30.0-36.0); Mean Corpuscular Hemoglobin 24.7 pg (28.0-34.0); Mean Corpuscular Volume 84.7 fL (81-99); Monocytes # 0.9 10^3/uL (0.2-0.9); Monocytes % 9.7 %; Neutrophils # 5.7 10^3/uL (1.8-7.7); Neutrophils % 59.9 %; Nucleated Red Blood Cells % 0 %; Platelet Count 522 10^3/cmm (130-400); Red Blood Count 5.31 10^6/uL (4.1-5.3); Red Cell Distribution Width 16.2 % (12.1-15.1); White Blood Count 9.5 10^3/uL (4.0-10.0)
[2019-08-20 05:41] LABS: Alanine Aminotransferase 16 U/L (0-33); Albumin Level 3.5 g/dL (3.5-5.2); Alkaline Phosphatase 131 IU/L (35-105); Anion Gap 21.9 (5-19); Aspartate Amino Transferase 17 U/L (0-32); Blood Urea Nitrogen 57 mg/dL (8-23); Calcium 8.6 mg/dL (8.5-10.5); Carbon Dioxide 31 mmol/L (22-29); Chloride 83 mmol/L (98-107); Creatinine Clr Calc Pharmacy 32.1294; Globulin 3.7 g/dL (1.3-4.6); Glomerular Filtration Rate 17.5 mL/min (90-130); Glucose 156 mg/dL (65-115); Osmolality Calculated 278 mOsm/kg (285-295); Sodium 133 mmol/L (136-145); Total Bilirubin 0.3 mg/dL (0.15-1.2); Total Protein 7.2 g/dL (6.6-8.7)
[2019-08-20 05:53] LABS: Potassium 2.9 mmol/L (3.5-5.1)
[2019-08-20 06:16] LABS: Estmated Average Glucose 128; Hemoglobin A1C 6.1 % (4.0-6.0)
[2019-08-20 06:18] LABS: Magnesium 3.8 mg/dL (1.7-2.3)
[2019-08-20] MEDS: ipratropium-albuterol 3 mL Neb INHALATION ×2 (08:25→19:59)
[2019-08-20] MEDS: budesonide 0.5 mg/2 mL Neb INHALATION ×2 (08:25→19:59)
[2019-08-20] MEDS: morphine 4 mg/mL SDV 1 mL 2 MG IVP ×2 (08:53→13:42)
[2019-08-20] MEDS: gabapentin 400 mg Capsule PO ×2 (08:54→17:32)
[2019-08-20] MEDS: duloxetine 60 mg Capsule PO (08:54)
[2019-08-20] MEDS: predniSONE 5 mg Tablet 2.5 MG PO (08:54)
[2019-08-20] MEDS: montelukast sodium 10 mg Tablet PO (08:54)
[2019-08-20] MEDS: pantoprazole DR 40 mg Tablet PO (08:55)
[2019-08-20] MEDS: dilTIAZem ER (24HR) 120 mg Capsule PO (08:55)
[2019-08-20] MEDS: levothyroxine 150 mcg Tablet 75 MCG PO (08:55)
[2019-08-20] MEDS: ondansetron 2 mg/ML SDV 2 mL 4 MG IVP (09:06)
--- NOTE | 2019-08-20 11:42 | PC.PT ---
Patient refused two different times when PT attempted eval due to pain. Will check back tomorrow.
[2019-08-20] MEDS: promethazine 25 mg Tablet 12.5 MG PO (12:22)
--- NOTE | 2019-08-20 13:24 | P.PN_ITS ---
Subjective Subjective: Interval history: Continues to have significant nausea not adequately relieved by Zofran. States she has been constipated for the past 5 days. Urine output has remained poor today, creatinine appears to be improving at 2.7 today. States back pain is marginally better. 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: no focal neuro deficits Data : 08/20/19 05:07 08/20/19 05:07 Micro: Microbiology 08/19/19 10:15 Blood Culture - Preliminary Blood NEGATIVE TO DATE 08/19/19 10:10 Blood Culture - Preliminary Blood NEGATIVE TO DATE 08/19/19 07:56 Urine Culture - Preliminary Urine,Clean Catch Gram Negative Rods A&P Assessment and plan (1) Pyelonephritis: Status: Acute (2) Sleep apnea: Status: Acute (3) COPD (chronic obstructive pulmonary disease): Status: Acute Additional A&P Information Admit to med/surg # R pyelonephritis : empiric zosyn renaally dosed await urine culture , preliminary with gram-negative rods awaiting identification. # LAURA : CT abdomen without acute urinary obstruction Place Pan today for accurate output assessment. Yesterday bladder scan only showed 62 cc, however unsure of accuracy. Patient does complain of some building suprapubic discomfort I suspect she may be retaining. Therefore we will go ahead and place a Pan catheter today. Holding off on fluids for now given h/o CHF on diuretics. #CHF: current;y appears to be fluid overloaded, iv lasix, increased to 40 mg IV every 12 hours for now. # COPD, not currently exacerbated: b[place]ark budesonide inhalation 02 titration RT eval and treat CPAP as needed #Constipation start Dulcolax suppository. Full code DVT ppx: lovenox Attestations Medical Necessity Statement*: continued iv abx for pyelonephritis, optimization of volume status Coding Level of Care Code Acute Fuller Brush Man for Chg Fwd Diagnoses Pyelonephritis N12 Sleep apnea G47.30 COPD (chronic obstructive pulmonary disease) J44.9
[2019-08-20] MEDS: alum-mag-hydroxide-sime 30 mL UDC PO (13:39)
[2019-08-20] MEDS: potassium chloride premix 40 MEQ/100 ML PREMIX 25 MEQ IV (14:54)
[2019-08-20] MEDS: lidocaine 1% INJ 20 mL 5 ML IV (14:54)
[2019-08-20] MEDS: FUROsemide 10 mg/mL SDV 4mL 40 MG IVP (17:33)
[2019-08-20] MEDS: enoxaparin 30 mg/0.3 mL Syringe SUBCUT (17:33)
[2019-08-20] MEDS: HYDROcodone-acetaminophen 5-325 mg Tablet PO (17:35)
[2019-08-20] MEDS: ondansetron 2 mg/ML SDV 2 mL 8 MG IVP (17:39)
[2019-08-20] MEDS: prochlorperazine 10 mg Tablet 5 MG PO (21:54)
[2019-08-21] VITALS (10 sets, daily range): BP systolic 102–128; BP diastolic 66–80; PULSE 81–118; RESP 16–22; TEMP 36.4–37.2; O2SAT 93–983
[2019-08-21] MEDS: LORazepam 1 mg Tablet PO (00:08)
[2019-08-21] MEDS: HYDROcodone-acetaminophen 5-325 mg Tablet PO ×2 (01:26→19:34)
[2019-08-21] MEDS: piperacillin-tazobactam 3.375 GM in sodium chloride 0.9% (plus) 50 ML IV (04:47)
[2019-08-21 06:13] LABS: Basophils # 0.1 10^3/uL (0.0-0.1); Basophils % 0.9 %; Eosinophils # 0.3 10^3/uL (0.0-0.8); Eosinophils % 3.4 %; Hematocrit 41.4 % (37.0-47.0); Hemoglobin 12.1 g/dL (11.5-15.3); Lymphocytes # 2.6 10^3/uL (0.8-4.8); Lymphocytes % 30.5 %; Mean Corpuscular HGB Conc 29.2 g/dL (30.0-36.0); Mean Corpuscular Hemoglobin 24.7 pg (28.0-34.0); Mean Corpuscular Volume 84.7 fL (81-99); Mean Platelet Volume 9.6 fL (7.4-10.4); Monocytes # 0.9 10^3/uL (0.2-0.9); Monocytes % 10.8 %; Neutrophils # 4.6 10^3/uL (1.8-7.7); Neutrophils % 53.2 %; Nucleated Red Blood Cells % 0 %; Platelet Count 462 10^3/cmm (130-400); Red Blood Count 4.89 10^6/uL (4.1-5.3); Red Cell Distribution Width 16.2 % (12.1-15.1); White Blood Count 8.6 10^3/uL (4.0-10.0)
[2019-08-21 06:31] LABS: Alanine Aminotransferase 15 U/L (0-33); Albumin Level 3.5 g/dL (3.5-5.2); Alkaline Phosphatase 111 IU/L (35-105); Anion Gap 16.1 (5-19); Aspartate Amino Transferase 15 U/L (0-32); Blood Urea Nitrogen 51 mg/dL (8-23); Calcium 8.5 mg/dL (8.5-10.5); Carbon Dioxide 36 mmol/L (22-29); Chloride 86 mmol/L (98-107); Globulin 3.1 g/dL (1.3-4.6); Glomerular Filtration Rate 21.1 mL/min (90-130); Glucose 126 mg/dL (65-115); Osmolality Calculated 280 mOsm/kg (285-295); Potassium 3.1 mmol/L (3.5-5.1); Sodium 135 mmol/L (136-145); Total Bilirubin 0.3 mg/dL (0.15-1.2); Total Protein 6.6 g/dL (6.6-8.7)
[2019-08-21] MEDS: ondansetron 2 mg/ML SDV 2 mL 8 MG IVP (08:18)
[2019-08-21] MEDS: gabapentin 400 mg Capsule PO ×2 (08:22→17:42)
[2019-08-21] MEDS: levothyroxine 150 mcg Tablet 75 MCG PO (08:23)
[2019-08-21] MEDS: dilTIAZem ER (24HR) 120 mg Capsule PO (08:24)
[2019-08-21] MEDS: duloxetine 60 mg Capsule PO (08:24)
[2019-08-21] MEDS: predniSONE 5 mg Tablet 2.5 MG PO (08:25)
[2019-08-21] MEDS: pantoprazole DR 40 mg Tablet PO (08:25)
[2019-08-21] MEDS: montelukast sodium 10 mg Tablet PO (08:25)
[2019-08-21] MEDS: bisacodyl 10 mg Supp PR (08:26)
[2019-08-21] MEDS: budesonide 0.5 mg/2 mL Neb INHALATION (08:31)
[2019-08-21] MEDS: ipratropium-albuterol 3 mL Neb INHALATION (08:31)
[2019-08-21] MEDS: alum-mag-hydroxide-sime 30 mL UDC PO (11:32)
[2019-08-21] MEDS: FUROsemide 10 mg/mL SDV 2mL 20 MG IVP (17:27)
[2019-08-21] MEDS: potassium chloride premix 40 MEQ/100 ML PREMIX 25 MEQ IV (17:31)
[2019-08-21] MEDS: lidocaine 1% INJ 20 mL 5 ML IV (17:32)
[2019-08-21] MEDS: enoxaparin 30 mg/0.3 mL Syringe SUBCUT (17:32)
[2019-08-21] MEDS: FUROsemide 10 mg/mL SDV 4mL 40 MG IVP (19:28)
--- NOTE | 2019-08-21 22:46 | PM.PN ---
Subjective Subjective: Interval history: seen this afternoon. improving, nausea resolved. 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 Urinary Catheter Management^: Pan: Cath Placed During This Visit: yes Reason for Continuing Indwelling Catheter: Acute Urinary Retention or Obstruction Urinary Catheter Date of Insertion: 08/20/19 Urinary Catheter Time of Insertion: 14:16 Data : 08/21/19 06:02 08/21/19 06:02 Micro: Microbiology 08/19/19 07:56 Urine Culture - Final Urine,Clean Catch Escherichia coli esbl A&P Assessment and plan (1) Pyelonephritis: Status: Acute (2) Sleep apnea: Status: Acute (3) COPD (chronic obstructive pulmonary disease): Status: Acute Additional A&P Information Admit to med/surg # R pyelonephritis : urine cx with esbl e.coli change zosyn to primaxin picc line plan to d/c on invanz tomorrow, total 10 days course # LAURA : CT abdomen without acute urinary obstruction Place Pan today for accurate output assessment. Yesterday bladder scan only showed 62 cc, however unsure of accuracy. Patient does complain of some building suprapubic discomfort I suspect she may be retaining. Therefore we will go ahead and place a Pan catheter today. Holding off on fluids for now given h/o CHF on diuretics. #CHF: current;y appears to be fluid overloaded, iv lasix, increased to 40 mg IV every 12 hours for now. # COPD, not currently exacerbated: duonebs, budesonide inhalation 02 titration RT eval and treat CPAP as needed #Constipation start Dulcolax suppository. Full code DVT ppx: lovenox Attestations Medical Necessity Statement*: pyelonephritis, need for iv, d/c planned tomorrow after picc Coding Level of Care Code Acute [facility] Diagnoses Pyelonephritis N12 Sleep apnea G47.30 COPD (chronic obstructive pulmonary disease) J44.9
[2019-08-22] VITALS (8 sets, daily range): BP systolic 114–136; BP diastolic 62–83; PULSE 99–137; RESP 14–20; TEMP 36.9–37; O2SAT 95–98
[2019-08-22] MEDS: ondansetron 2 mg/ML SDV 2 mL 8 MG IVP ×2 (00:28→16:16)
[2019-08-22] MEDS: prochlorperazine 10 mg Tablet 5 MG PO (02:05)
[2019-08-22] MEDS: alum-mag-hydroxide-sime 30 mL UDC PO (02:42)
[2019-08-22] MEDS: LORazepam 1 mg Tablet PO (02:42)
[2019-08-22 03:42] LABS: Basophils # 0.1 10^3/uL (0.0-0.1); Basophils % 0.8 %; Eosinophils # 0.3 10^3/uL (0.0-0.8); Eosinophils % 3.2 %; Hematocrit 40.1 % (37.0-47.0); Lymphocytes # 2.1 10^3/uL (0.8-4.8); Lymphocytes % 22.5 %; Mean Corpuscular HGB Conc 29.9 g/dL (30.0-36.0); Mean Corpuscular Hemoglobin 25.2 pg (28.0-34.0); Mean Corpuscular Volume 84.1 fL (81-99); Mean Platelet Volume 9.6 fL (7.4-10.4); Monocytes % 10.6 %; Neutrophils # 5.7 10^3/uL (1.8-7.7); Neutrophils % 61.6 %; Nucleated Red Blood Cells % 0 %; Platelet Count 455 10^3/cmm (130-400); Red Blood Count 4.77 10^6/uL (4.1-5.3); Red Cell Distribution Width 16.2 % (12.1-15.1); White Blood Count 9.2 10^3/uL (4.0-10.0)
[2019-08-22 04:18] LABS: Alanine Aminotransferase 14 U/L (0-33); Albumin Level 3.3 g/dL (3.5-5.2); Alkaline Phosphatase 109 IU/L (35-105); Anion Gap 18.1 (5-19); Aspartate Amino Transferase 14 U/L (0-32); Blood Urea Nitrogen 43 mg/dL (8-23); Calcium 9.1 mg/dL (8.5-10.5); Carbon Dioxide 35 mmol/L (22-29); Chloride 86 mmol/L (98-107); Creatinine Clr Calc Pharmacy 48.1941; Globulin 3.3 g/dL (1.3-4.6); Glucose 137 mg/dL (65-115); Osmolality Calculated 282 mOsm/kg (285-295); Potassium 3.1 mmol/L (3.5-5.1); Sodium 136 mmol/L (136-145); Total Bilirubin 0.3 mg/dL (0.15-1.2); Total Protein 6.6 g/dL (6.6-8.7)
[2019-08-22] MEDS: pantoprazole DR 40 mg Tablet PO (08:37)
[2019-08-22] MEDS: duloxetine 60 mg Capsule PO (08:37)
[2019-08-22] MEDS: dilTIAZem ER (24HR) 120 mg Capsule PO (08:37)
[2019-08-22] MEDS: gabapentin 400 mg Capsule PO (08:37)
[2019-08-22] MEDS: montelukast sodium 10 mg Tablet PO (08:37)
[2019-08-22] MEDS: fentaNYL 50 mcg Patch 1 PATCH TRANSDERMA (08:38)
[2019-08-22] MEDS: levothyroxine 150 mcg Tablet 75 MCG PO (08:39)
[2019-08-22] MEDS: predniSONE 5 mg Tablet 2.5 MG PO (08:39)
--- NOTE | 2019-08-22 10:20 | PC.SOCIAL ---
Pg 2 IMM Explained to pt Pg 2 IMM. Pt verbally understands. No questions voiced. Provided pt a copy & left on pt's bedside table. Signed, dated, & timed a copy & placed in pt's chart.
--- NOTE | 2019-08-22 10:21 | XR_ITS ---
WS: [id number] CHEST XRAY TECHNIQUE: Portable chest. CLINICAL INFORMATION: picc placement COMPARISON: None. FINDINGS: Shallow inspiration. Right PICC line with tip in the distal SVC. No pneumothorax. XR/XR chest 1V portable [id number] IMPRESSION: Right PICC line tip in distal SVC.
--- NOTE | 2019-08-22 11:58 | PC.CHAP ---
Pastoral Care Encounter/Spiritual Assessment Type of Contact [] Declined brakes inspector visit [] Patient/Family/Request visit [] Outpatient visit [] Follow-up visit [] Physician referral [] Code/Alert [] Routine visit [] Staff referral [] Actively dying [] Patient sleeping [] Family support [] [] Out of room [] Palliative care [] [] Receiving care in room [] Pre-surgical visit [] Trauma [] Long length of stay [] ICU visit [X] Other: isolation Relational/Emotional Strength [] Patient feels connected with others/family/visitors/staff [] Distress [] Loneliness/isolation [] Abandonment Spirituality of Patient [] Person of Cris [] Attends Sabianism of their Cris [] Believes in Prayer [] Reads Bible or Anglican materials [] There are Spiritual issues to be addressed Farm Hand Interventions [] Prayer [] Active listening [] Non-anxious presence [] Spiritual/emotional support [] Crisis/trauma care [] Spiritual counseling [] Bereavement support [] Provided bereavement packet [] Provided Bible/devotional materials [] Provided toy/stuffed animal, coloring book to patient or family member [] Provided Communion [] Anointing/[place] [] Salvation [] Completed spiritual assessment [] Other: Impact on Illness or Injury [] Angry [] Fearful [] Anxious [] Often cries [] Exhaustion [] Unable to work [] Unable to attend jew [] Unable to walk/stand [] Unable to read [] Unable to drive [] Unable to eat/drink [] Unable to sleep [] Unable to be with family [] Patient intubated [] Other: Summary isolation Time spent with patient 5 mins
[2019-08-22] MEDS: lidocaine 2% viscous 15 ML, aluminum-mag hydrox-simethicon 30 ML, sucralfate oral liq 1 GM PO (13:11)
[2019-08-22] MEDS: metoprolol tartrate 1 mg/1 mL SDV 5 mL 5 MG IV (13:11)
[2019-08-22] MEDS: ertapenem 1,000 MG in sodium chloride 0.9% (plus) 100 ML 200 MG IV (13:47)
--- NOTE | 2019-08-22 14:15 | PM.DCS ---
Discharge Providers Date of Admission: 08/19/19 09:19 Date of Discharge: August 22, 2019 Attending Provider at Admission: Abby Coyne MD Attending Provider at Discharge: Abby Coyne MD Primary Care Provider: Diomedes Wei DO Diagnoses at Discharge Discharge Diagnosis (1) Pyelonephritis: Status: Acute (2) Sleep apnea: Status: Acute (3) COPD (chronic obstructive pulmonary disease): Status: Acute Reason for Visit Reason for Visit: Reason For Visit: PYELNOEPHRTITIS Hospital Course Discharge Summary: Nina Kang is a 68 year old female with PMH COPD on home 02 at 3lpm, CHF on diuretics, chronic pain who presented to the ER with c/o multiple episodes of vomiting, back and abdominal pain and burning micturition over the last 3 days. She was in her usual state of health prior to this. Clinically she had right side CVA tenderness and labs notable for leukocytosis, LAURA and +UA. Urine culture ended up showing ESBL E. coli. Once culture results were available [facility] while remaining inpatient. She improved significantly during the course of admission. Her nausea is now resolved. She received Dulcolax suppository and ultimately ended up having a bowel movement. Her back pain is significantly improved compared to admission. Kidney function is improving and creatinine down from 2.9-1.8 at the day of discharge. She received needed to have a Pan placed for urinary retention on the day of admission, however this is now been removed. He is being discharged with recommendation to complete a total 10-day course of Carbapenem's. She will need 8 more days of IV ertapenem at home. She has a PICC line in place to facilitate above will be home administering the antibiotic as per her wishes. She declined placement at SNF. Her granddaughter Solange will help her with the antibiotic administration at home. Her procardia has been increased as she continued to have tachycardia while in the hospital. 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 Urinary Catheter Management^: Pan: Cath Placed During This Visit: yes Reason for Continuing Indwelling Catheter: Acute Urinary Retention or Obstruction Urinary Catheter Date of Insertion: 08/20/19 Urinary Catheter Time of Insertion: 14:16 Discharge Data Data Completed and Pending: Completed Studies During Hospitalization Category Date Time Status CT abdomen pelvis wo con [id number] Stat Cat Scan 08/19/19 07:16 Completed XR chest 1V thuy ble [id number] Routine Exams 08/19/19 16:42 Completed XR chest 1V thuy ble [id number] Stat Exams 08/22/19 10:21 Completed Pending at discharge Category Date Time Status Blood Culture Sta t Lab 08/19/19 10:15 Results Complete Blood Co unt w/Auto AM LABS Lab 08/23/19 04:00 Ordered Labs from last 24 hours 08/22/19 08/22/19 03:30 03:30 WBC 9.2 RBC 4.77 Hgb 12.0 Hct 40.1 MCV 84.1 MCH 25.2 L MCHC 29.9 L RDW 16.2 H Plt Count 455 H MPV 9.6 Neut % (Auto) 61.6 Lymph % (Auto) 22.5 [place] % (Auto) 10.6 Eos % (Auto) 3.2 Baso % (Auto) 0.8 Neut # (Auto) 5.7 Lymph # (Auto) 2.1 [place] # (Auto) 1.0 H Eos # (Auto) 0.3 Baso # (Auto) 0.1 Nucleated RBC % (a uto) 0 Nucleated RBCs # 0.0 Sodium 136 Potassium 3.1 L Chloride 86 L Carbon Dioxide 35 H Anion Gap 18.1 BUN 43 H Creatinine 1.8 H GFR Calculation 28.0 L Glucose 137 H Calculated Osmolal ity 282 L Calcium 9.1 Total Bilirubin 0.3 AST 14 ALT 14 Alkaline Phosphata se 109 H Total Protein 6.6 Albumin 3.3 L Globulin 3.3 Vitals: Last Vital Signs Temp 98.6 F 08/22/19 12:00 Pulse 137 H 08/22/19 12:00 Resp 20 H 08/22/19 12:00 BP 117/62 08/22/19 12:00 Pulse Ox 96 08/22/19 12:00 Discharge Plan Discharge Patient Disposition: Home, Self-Care Condition: Stable Prescriptions: New ertapenem 1 gram recon soln 1 gm IV Q24H 8 Days RF: 0 Continued Spiriva with HandiHaler 18 mcg capsule, w/inhalation device 1 cap INHALATION DAILY RF: 0 Adult 50 Plus Probiotic 4 billion cell capsule See Rx Instructions .ROUTE .COMPLEX RF: 0 metolazone 2.5 mg Tablet 2.5 mg PO DAILY RF: 0 fentanyl 50 mcg/hr Patch 72 Hour 1 patch TRANSDERMAL Q72H RF: 0 albuterol sulfate 2.5 mg /3 mL (0.083 %) Solution For Nebulization 2.5 mg INHALATION Q4H PRN (Reason: Shortness Of Breath) RF: 0 hydrocodone-acetaminophen 5-325 mg Tablet 1 - 2 tab PO Q6H PRN (Reason: Pain) RF: 0 ondansetron HCl [Zofran] 4 mg Tablet 4 mg PO Q8H PRN (Reason: Nausea) RF: 0 gabapentin 400 mg Capsule 400 mg PO BID RF: 0 levothyroxine 75 mcg Tablet 75 mcg PO DAILY RF: 0 prednisone 2.5 mg Tablet 2.5 mg PO DAILY RF: 0 pantoprazole 40 mg Tablet,Delayed Release (Dr/Ec) 40 mg PO DAILY RF: 0 nitroglycerin [Nitrostat] 0.4 mg Tablet, Sublingual 0.4 mg SUBLINGUAL Q5M PRN (Reason: Chest Pain) RF: 0 montelukast 10 mg Tablet 10 mg PO DAILY RF: 0 lorazepam [Ativan] 1 mg Tablet 1 mg PO Q6H PRN (Reason: Anxiety) RF: 0 simethicone 125 mg Tablet 125 mg PO DAILY PRN (Reason: Gastric Reflux) RF: 0 fluticasone propionate 50 mcg/actuation [place],Suspension 2 spray INTRANASAL DAILY RF: 0 duloxetine 60 mg Capsule,Delayed Release(Dr/Ec) 60 mg PO DAILY RF: 0 Breo Ellipta 100-25 mcg/dose Blister With Device 1 inh INHALATION DAILY RF: 0 furosemide [Lasix] 20 mg Tablet 20 mg PO DAILY 30 Days Qty: 30 RF: 0 Changed potassium chloride 20 mEq Tablet Extended Release 20 meq PO BIDWM Qty: 0 RF: 0 Cartia XT 120 mg capsule,extended release 24hr 180 mg PO DAILY 30 Days Qty: 30 RF: 0 Discontinued ciprofloxacin HCl 500 mg tablet 500 mg PO BID RF: 0 Discharge Orders: Discharge Order (Routine); Ordered 08/22/19 Ordered By: Abby Coyne Referrals: Diomedes Wei DO [Primary Care Provider] - 1 week (hospital discharge follow up for pyelonephritis, adjust procardia and lasix ) Grady Rodriguez MD [Family Provider] - Discharge Diet: Usual diet Discharge Activity: Resume usual activity Activity Restrictions/Additional Instructions: Procardia dose increased from 120 to 180mg every day Take lasix 40mg daily over the next 8 days, then follow up with primary care doctor at end of treatment with antibiotics and adjust lasix dosing Discharge Attestations Time Spent in Discharge Care*: greater than 30 min Quality Metrics Clinical Quality Measures During this hospital stay, did patient experience: None Coding Level of Care Code 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
[2019-08-22] MEDS: ipratropium-albuterol 3 mL Neb INHALATION (15:16)
[2019-08-22] MEDS: HYDROcodone-acetaminophen 5-325 mg Tablet PO (16:17)
[2019-08-22] MEDS: FUROsemide 10 mg/mL SDV 4mL 40 MG IVP (16:17)
--- NOTE | 2019-08-22 19:08 | PC.NURSE ---
Discharge Note Discharge orders discussed per doctors orders with medication and education on side effect. IV removed with catheter in tact. Pressure dressing applied. Patient tolerated well. Patient left unit by wheelchair to family vehicle.
== END 2019-08-22 18:00 | disposition home or self-care (01) | DRG 690 ==
LOC: ER 10:06 → MEDSURG 10:07
PROVIDERS: Hospitalist; Admitting Provider Student in an Organized Health Care Education/Training Program; Emergency Provider Family Medicine; Family Provider Family Medicine; PCP Family Medicine; Visit Provider Student in an Organized Health Care Education/Training Program
DX: N10 Acute pyelonephritis (principal); Z16.12 Extended spectrum beta lactamase (ESBL) resistance; N17.9 Acute kidney failure, unspecified; I11.0 Hypertensive heart disease with heart failure; I48.91 Unspecified atrial fibrillation; I50.9 Heart failure, unspecified; J44.9 Chronic obstructive pulmonary disease, unspecified; G47.30 Sleep apnea, unspecified; Z99.81 Dependence on supplemental oxygen; G89.29 Other chronic pain; Z86.73 Personal history of transient ischemic attack (TIA), and cerebral infarction without residual deficits; B96.89 Other specified bacterial agents as the cause of diseases classified elsewhere; K21.9 Gastro-esophageal reflux disease without esophagitis; F41.8 Other specified anxiety disorders; E03.9 Hypothyroidism, unspecified; K44.9 Diaphragmatic hernia without obstruction or gangrene; K58.9 Irritable bowel syndrome, unspecified; F17.210 Nicotine dependence, cigarettes, uncomplicated
CPT/HCPCS: 12345; 36415; 36569; 36592; 51702; 51798; 71045; 74176; 76705; 80053; 81001; 81003; 82274; 82436; 82570; 83036; 83540; 83550; 83605; 83630; 83690; 83735; 83880; 84100; 84133; 84145; 84300; 84443; 84484; 85025; 85999; 87040; 87077; 87086; 87186; 87493; 87506; 93005; 93306; 94640; 94664; 96372; 96374; 96375; 97110; 97163; 99283; C9113; J0696; J0743; J1335; J1644; J1650; J1940; J2001; J2060; J2270; J2405; J2543; J2550; J3480; J3490; J7030; J7040; J7050; J7512; J7626; J8498; Q0164; Q0169

== ENCOUNTER 2019-08-23 14:18 | Inpatient (IN) | payer MEDICARE, MEDICAID, SELFPAY ==
[2019-08-23] VITALS (9 sets, daily range): BP systolic 122–175; BP diastolic 84–136; PULSE 116–137; RESP 16–22; TEMP 36.8–36.9; O2SAT 96–99; BMI 45.4; BMI 45.2
--- NOTE | 2019-08-23 14:32 | CT_ITS ---
WS: [id number] CT ABDOMEN AND PELVIS NONCONTRAST HISTORY: nausea and vomiting TECHNIQUE: Imaging performed through the abdomen and pelvis. Coronal and sagittal reformats are submi tted. All CT scans at [facility] use at least one of these dose optimization techniques: automated exposure control; mA and/or kV adjustment per patient size (includes targeted exams where d ose is matched to clinical indication); or iterative reconstruction. DLP: 1276.06 mGy.cm COMPARISON: 08/19/2019 Lower thorax: Mild fibrotic changes in the periphery of the lower lung [place]. No pneumonia. Liver: Variable density throughout the liver is probably due to hepatic steatosis with areas of spari ng. Similar to the prior examination. Gallbladder: Prior cholecystectomy. Pancreas: Fatty replacement of the pancreas. No adjacent inflammation. Spleen: Normal. Adrenal glands: Normal. Right kidney: Mild renal atrophy. No obstruction or calcification. Left kidney: Mild renal atrophy. 6 mm exophytic nodule from the mid kidney. Mild atherosclerosis aorta. No aneurysm. No free fluid, intraperitoneal air or significant lymphadenopathy. GI tract: No evidence for appendicitis. No GI tract obstruction or diverticulosis. Abdominal wall: Intact. Pelvis: Normal. Osseous structures: Increase in lumbar lordosis. Mild degenerative disc disease at L4-5. No osteoblas tic or osteolytic bone disease. Notified Nerissa Ledesma MD MSM at 08/23/2019 4:[address]/CT abdomen pelvis wo con [id number] IMPRESSION: 1. Mild hepatomegaly with severe hepatic steatosis. 2. Prior cholecystectomy. 3. Fatty replacement of the pancreas. 4. No GI tract obstruction.
[2019-08-23] MEDS: ondansetron 2 mg/ML SDV 2 mL 4 MG IVP ×2 (14:53→21:38)
[2019-08-23] MEDS: sodium chloride 0.9% 500 ML IV (14:53)
--- NOTE | 2019-08-23 14:55 | ED_ITS ---
HPI - Nausea/Vomiting/Diarrhea General: Chief complaint: Nausea/Vomiting/Diarrhea Stated complaint: N/V BACK PAIN Time Seen by Provider: 08/23/19 14:24 Source: patient and EMS Mode of arrival: EMS Limitations: no limitations History of Present Illness: MD elicited complaint: nausea, vomiting, diarrhea and flank pain Onset (ago): day(s) Description of vomiting: food contents and bilious Description of diarrhea: watery Associated nausea: Yes Associated abdominal pain: No Location of pain: L flank and R flank Severity: moderate Associated symtoms: Reports chest pain and nausea; Denies change in vision, dysuria, headache(s) or palpitations Review of Systems General: Reports: 10 or more systems reviewed and unremarkable except in HPI and below Const: Denies: fever, chills or body aches Eyes: Denies: change in vision or blurry vision ENMT: Denies: throat pain, enlarged tonsils, painful swallowing, hoarseness, mouth pain or swelling of lips/tongue Card: Reports: chest pain; Denies: palpitations, irregular heart rhythm, edema or swelling of feet/ankles Resp: Denies: shortness of breath, productive cough or non-productive cough GI: Reports: nausea, vomiting and diarrhea : Denies: painful urination Musc: Denies: neck pain, back pain or extremity swelling Skin/Breast: Denies: rash, itching or redness Neuro: Denies: headache, numbness in extremities or weakness in extremities Endo: Denies: excessive urination, excessive thirst or tired all the time PFS ED PFSH: Social History Smoking and tobacco status: current every day smoker cigarettes Years cigarettes smoked: 54 Quit status (tobacco): not considering quitting Alcohol intake: never Caregiver/support person: Yes Lives independently: Yes Household members: none Marital status: / Current occupational status: retired and disabled History of recent travel: No Current gender identity: Female Physical Exam Const: COMMON NORMALS: average body habitus, oriented x3, no limitations, healthy appearing, alert and well nourished GENERAL APPEARANCE: in distress and ill appearing HENMT: COMMON NORMALS: normocephalic, head/scalp atraumatic and moist oral mucous membranes HEAD & SCALP: normocephalic and atraumatic Eye: COMMON NORMALS: PERRL, EOMs intact bilaterally, conjunctivae normal and no scleral icterus CONJUNCTIVA: Yes conjunctivae normal PUPIL: Yes PERRL Neck/C-Spine: COMMON NORMALS: full ROM, supple, no meningeal signs, no JVD and no carotid bruits Chest: COMMONS NORMALS: inspection of chest normal and palpation of chest normal Resp: COMMON NORMALS: normal respiratory effort, no retractions, no use of accessory muscles, clear to auscultation bilaterally and percussion normal AUSCULTATION: clear to auscultation bilaterally PERCUSSION: percussion normal Cardio: COMMON NORMALS: no JVD, regular rhythm, S1 normal heart sound, S2 norm al heart sound, no gallops, no clicks, no murmurs, no rub and peripheral pulses 2+ throughout RATE: tachycardic RHYTHM: regular rhythm HEART SOUNDS: S1 normal and S2 normal PERIPHERAL PULSES: pulses 2+ throughout GI: COMMON NORMALS: normal to inspection, nondistended, normoactive bowel sounds, soft to palpation, non-tender, no hepatosplenomegaly, no masses and no bruits PALPATION: Yes soft and Yes no hepatosplenomegaly : BLADDER/KIDNEY EXAM: Yes CVA tenderness Back/Pelvis: GENERAL BACK: Yes CVA tenderness Extremity: COMMON NORMALS: normal to inspection, full ROM, normal capillary refill, no calf tenderness and no pedal edema Neuro: COMMON NORMALS: oriented x3 SENSORIUM/ORIENTATION: Yes alert MENINGEAL SIGNS: Yes no meningeal signs Skin: COMMON NORMALS: no rashes or lesions noted, no wounds, skin turgor normal, no jaundice, no petechiae and no mottling GENERAL SKIN EXAM: no rashes or lesions noted and turgor normal Course Consultations: Consultation #1: Dr. Kellogg, hospitalist. He kindly accepted the patient to his service Vital Signs: Vital signs: Vital Signs Temperature 98.3 F 08/23/19 14:19 Pulse Rate 120 H 08/23/19 18:27 Respiratory Rate 16 08/23/19 14:19 Blood Pressure 136/85 08/23/19 18:27 Pulse Oximetry 99 08/23/19 18:27 MDM - Nausea/Vomiting/Diarrhea MDM Narrative: Medical decision making narrative: 68-year-old female patient who was discharged from this facility yesterday after being admitted for acute pyelonephritis. The patient has been having episodes of intractable nausea and vomiting at home and presented here for evaluation in the emergency department the patient was noted to be hypokalemic and vomited several times in the emergency department. He was difficult to get her vomiting under control. She is therefore admitted for further evaluation and management. Lab Data: Labs: Lab Results 08/23/19 08/23/19 08/23/19 Range/Units 14:50 14:50 14:50 WBC 13.0 H (4.0-10.0) 10^3/ uL RBC 5.34 H (4.1-5.3) 10^6/u L Hgb 13.6 (11.5-15.3) g/dL Hct 45.4 (37.0-47.0) % MCV 85.0 (81-99) fL MCH 25.5 L (28.0-34.0) pg MCHC 30.0 (30.0-36.0) g/dL RDW 16.3 H (12.1-15.1) % Plt Count 429 H (130-400) 10^3/c mm MPV 9.7 (7.4-10.4) fL Neut % (Auto) 80.7 % Lymph % (Auto) 9.1 % [place] % (Auto) 6.1 % Eos % (Auto) 2.6 % Baso % (Auto) 0.7 % Neut # (Auto) 10.5 H (1.8-7.7) 10^3/u L Lymph # (Auto) 1.2 (0.8-4.8) 10^3/u L [place] # (Auto) 0.8 (0.2-0.9) 10^3/u L Eos # (Auto) 0.3 (0.0-0.8) 10^3/u L Baso # (Auto) 0.1 (0.0-0.1) 10^3/u L Nucleated RBC % (a uto) 0 % Nucleated RBCs # 0.0 /100WBC Sodium 133 L (136-145) mmol/L Potassium 2.8 L* (3.5-5.1) mmol/L Chloride 82 L (98-107) mmol/L Carbon Dioxide 33 H (22-29) mmol/L Anion Gap 20.8 H (5-19) BUN 34 H (8-23) mg/dL Creatinine 1.9 H (0.5-0.9) mg/dL GFR Calculation 26.3 L (90-130) mL/min Glucose 159 H (65-115) mg/dL Calculated Osmolal ity 277 L (285-295) mOsm/k g Lactate 1.3 (0.5-2.2) mmol/L Calcium 9.3 (8.5-10.5) mg/dL Magnesium (1.7-2.3) mg/dL Iron (37-145) ug/dL TIBC mcg/dl % Saturation (20-50) % Unsat Iron Binding (112-347) ug/dL Total Bilirubin 0.3 (0.15-1.2) mg/dL AST 20 (0-32) U/L ALT 15 (0-33) U/L Alkaline Phosphata se 134 H (35-105) IU/L NT-Pro-B Natriuret Pep (0-125) pg/mL Total Protein 6.8 (6.6-8.7) g/dL Albumin 3.5 (3.5-5.2) g/dL Globulin 3.3 (1.3-4.6) g/dL Lipase 8 L (13-60) U/L Procalcitonin (0-0.5) ng/mL TSH (0.27-4.20) uIU/ mL Urine Color (Yellow) Urine Appearance (CLEAR) Urine pH (5-7) Ur Specific Gravit y (1.005-1.030) Urine Protein (Negative) Urine Glucose (UA) (Normal) Urine Ketones (Negative) Urine Blood (Negative) Urine Nitrate (Negative) Urine Bilirubin (NEGATIVE) Urine Urobilinogen (Negative) mg/dL Ur Leukocyte Lynette ase (Negative) 08/23/19 08/23/19 08/23/19 Range/Units 14:50 14:50 16:34 WBC (4.0-10.0) 10^3/ uL RBC (4.1-5.3) 10^6/u L Hgb (11.5-15.3) g/dL Hct (37.0-47.0) % MCV (81-99) fL MCH (28.0-34.0) pg MCHC (30.0-36.0) g/dL RDW (12.1-15.1) % Plt Count (130-400) 10^3/c mm MPV (7.4-10.4) fL Neut % (Auto) % Lymph % (Auto) % [place] % (Auto) % Eos % (Auto) % Baso % (Auto) % Neut # (Auto) (1.8-7.7) 10^3/u L Lymph # (Auto) (0.8-4.8) 10^3/u L [place] # (Auto) (0.2-0.9) 10^3/u L Eos # (Auto) (0.0-0.8) 10^3/u L Baso # (Auto) (0.0-0.1) 10^3/u L Nucleated RBC % (a uto) % Nucleated RBCs # /100WBC Sodium (136-145) mmol/L Potassium (3.5-5.1) mmol/L Chloride (98-107) mmol/L Carbon Dioxide (22-29) mmol/L Anion Gap (5-19) BUN (8-23) mg/dL Creatinine (0.5-0.9) mg/dL GFR Calculation (90-130) mL/min Glucose (65-115) mg/dL Calculated Osmolal ity (285-295) mOsm/k g Lactate (0.5-2.2) mmol/L Calcium (8.5-10.5) mg/dL Magnesium 2.8 H (1.7-2.3) mg/dL Iron 105 (37-145) ug/dL TIBC 339 mcg/dl % Saturation 30.9 (20-50) % Unsat Iron Binding 234 (112-347) ug/dL Total Bilirubin (0.15-1.2) mg/dL AST (0-32) U/L ALT (0-33) U/L Alkaline Phosphata se (35-105) IU/L NT-Pro-B Natriuret Pep 373 H (0-125) pg/mL Total Protein (6.6-8.7) g/dL Albumin (3.5-5.2) g/dL Globulin (1.3-4.6) g/dL Lipase (13-60) U/L Procalcitonin 0.18 (0-0.5) ng/mL TSH 1.85 (0.27-4.20) uIU/ mL Urine Color Yellow (Yellow) Urine Appearance Clear (CLEAR) Urine pH 7 (5-7) Ur Specific Gravit y 1.005 (1.005-1.030) Urine Protein Neg (Negative) Urine Glucose (UA) Norm (Normal) Urine Ketones 1+ H (Negative) Urine Blood Neg (Negative) Urine Nitrate Negative (Negative) Urine Bilirubin Neg (NEGATIVE) Urine Urobilinogen Norm (Negative) mg/dL Ur Leukocyte Lynette ase Negative (Negative) Imaging Data^: CT Abd/Pel: Radiologist's impression: [address] [place] [address] CT Scan Report Signed Patient: Nina Kang #: [id number] : 1Acct#:[id number] Age/Sex: 68 / FADM Date: 08/23/19 Loc: ERRoom/Bed: Attending Dr: Ordering Provider/Ordering MD: Nerissa Ledesma MD, [facility] Date of Service: 08/23/19 Procedure(s): CT abdomen pelvis [facility] [id number] Accession Number(s): [id number] Report Number: [id number] WS: [id number] CT ABDOMEN AND PELVIS NONCONTRAST HISTORY: nausea and vomiting TECHNIQUE: Imaging performed through the abdomen and pelvis. Coronal and sagittal reformats are submitted. All CT scans at [facility] use at least one of these dose optimization techniques: automated exposure control; mA and/or kV adjustment per patient size (includes targeted exams where dose is matched to clinical indication); or iterative reconstruction. DLP: 1276.06 mGy.cm COMPARISON: 08/19/2019 Lower thorax: Mild fibrotic changes in the periphery of the lower lung [place]. No pneumonia. Liver: Variable density throughout the liver is probably due to hepatic steatosis with areas of sparing. Similar to the prior examination. Gallbladder: Prior cholecystectomy. Pancreas: Fatty replacement of the pancreas. No adjacent inflammation. Spleen: Normal. Adrenal glands: Normal. Right kidney: Mild renal atrophy. No obstruction or calcification. Left kidney: Mild renal atrophy. 6 mm exophytic nodule from the mid kidney. Mild atherosclerosis aorta. No aneurysm. No free fluid, intraperitoneal air or significant lymphadenopathy. GI tract: No evidence for appendicitis. No GI tract obstruction or diverticulosis. Abdominal wall: Intact. Pelvis: Normal. Osseous structures: Increase in lumbar lordosis. Mild degenerative disc disease at L4-5. No osteoblastic or osteolytic bone disease. Notified Nerissa Ledesma MD MSM at 08/23/2019 4:[address]/CT abdomen pelvis wo con [id number] IMPRESSION: 1. Mild hepatomegaly with severe hepatic steatosis. 2. Prior cholecystectomy. 3. Fatty replacement of the pancreas. 4. No GI tract obstruction. Dictated By:Jessica Burton DO Signed By:Jessica Burton DOSigned Date/Time:08/23/19 1606 DD/ 1556 Discharge Plan Discharge Patient Disposition: Admitted As Inpatient Admit Provider: Ramana Kellogg Clinical Impression: Intractable nausea and vomiting, Acute hypokalemia, Acute pyelonephritis Condition: Stable Interventions: ED Discharge Assessment Last Done: 08/23/19 18:45 ED Charges Last Done: 08/23/19 18:45 Discharge Date/Time: 08/23/19 19:49 Coding Level of Care Code ED Client Partner for Chg Fwd Exam Comprehensive
[2019-08-23 14:59] LABS: Basophils # 0.1 10^3/uL (0.0-0.1); Basophils % 0.7 %; Eosinophils # 0.3 10^3/uL (0.0-0.8); Eosinophils % 2.6 %; Hematocrit 45.4 % (37.0-47.0); Hemoglobin 13.6 g/dL (11.5-15.3); Lymphocytes # 1.2 10^3/uL (0.8-4.8); Lymphocytes % 9.1 %; Mean Corpuscular Hemoglobin 25.5 pg (28.0-34.0); Mean Platelet Volume 9.7 fL (7.4-10.4); Monocytes # 0.8 10^3/uL (0.2-0.9); Monocytes % 6.1 %; Neutrophils # 10.5 10^3/uL (1.8-7.7); Neutrophils % 80.7 %; Nucleated Red Blood Cells % 0 %; Platelet Count 429 10^3/cmm (130-400); Red Blood Count 5.34 10^6/uL (4.1-5.3); Red Cell Distribution Width 16.3 % (12.1-15.1)
[2019-08-23 15:18] LABS: Alanine Aminotransferase 15 U/L (0-33); Albumin Level 3.5 g/dL (3.5-5.2); Alkaline Phosphatase 134 IU/L (35-105); Anion Gap 20.8 (5-19); Aspartate Amino Transferase 20 U/L (0-32); Blood Urea Nitrogen 34 mg/dL (8-23); Calcium 9.3 mg/dL (8.5-10.5); Carbon Dioxide 33 mmol/L (22-29); Chloride 82 mmol/L (98-107); Globulin 3.3 g/dL (1.3-4.6); Glomerular Filtration Rate 26.3 mL/min (90-130); Glucose 159 mg/dL (65-115); Lipase 8 U/L (13-60); Osmolality Calculated 277 mOsm/kg (285-295); Sodium 133 mmol/L (136-145); Total Bilirubin 0.3 mg/dL (0.15-1.2); Total Protein 6.8 g/dL (6.6-8.7)
[2019-08-23 15:19] LABS: Lactate (Lactic Acid level) 1.3 mmol/L (0.5-2.2)
[2019-08-23 15:35] LABS: Potassium 2.8 mmol/L (3.5-5.1)
--- NOTE | 2019-08-23 15:40 | PC.NURSE ---
pt to CT by stretcher with tech
[2019-08-23] MEDS: promethazine 25 mg/mL SDV 1 mL IM (16:43)
[2019-08-23] MEDS: potassium chloride premix 40 MEQ/100 ML PREMIX 25 MEQ IV ×2 (16:43→21:39)
[2019-08-23 17:01] LABS: Add Urine Microscopic? NO
[2019-08-23 17:07] LABS: Blood Urine Neg (Negative); Glucose Urine UA Norm (Normal); Ketones Urine 1+ (Negative); Protein Urine Neg (Negative); Specific Gravity, Urine 1.005 (1.005-1.030); Urine Appearance Clear (CLEAR); Urine Color Yellow (Yellow); pH Urine 7 (5-7)
[2019-08-23 17:08] LABS: Bilirubin Urine Neg (NEGATIVE); Leukocyte Esterase Urine Negative (Negative); Nitrate Urine Negative (Negative); Urobilinogen Urine Norm (Negative)
--- NOTE | 2019-08-23 17:39 | P.HP_ITS ---
Providers/Chief Complaint Primary Care Provider: Diomedes Wei DO Chief Complaint: N/V BACK PAIN History of Present Illness Nina Kang is a 68 year old female with past medical history of hypertension, hypothyroidism, A. fib, not on anticoagulation because of history of GERD and GI bleed, discharged 1 day ago after being treated for ESBL E. coli UTI on ertapenem. She was admitted last week with complaint of intractable vomi ting and was found to have UTI. During that admission while being treated for UTI vomiting subsided while getting as needed 8 mg of Zofran. Patient also has history of IBS and during this admission was having constipation for which she was given Dulcolax suppository a day prior to discharge. Patient presents to the ER today complaining of epigastric pain and multiple episodes of vomiting. Patient states she is not able to keep anything down and vomits even with fluids. Vomitus is not bloodstained containing food particles and is bilious in color, not foul-smelling. Patient is also having 3-4 episodes of diarrhea which is not foul-smelling, slightly watery, not bloodstained. Blood work in the ER done today showed a creatinine of 1.9 with creatinine being 1.8 a day ago, liver functions at baseline with mildly elevated alkaline phosphatase, hypokalemia with potassium down to 2.8, CBC at baseline except white count being 13,000, CT abdomen pelvis done shows mild hepatomegaly with hepatic steatosis with no signs of GI obstruction. In the ER patient was given 2 doses of 4 mg of IV Zofran and Phenergan after which her vomiting subsided. Hospital service was requested for further donny luation and treatment. Review of Systems Const: Denies: fever, chills, body aches, change in appetite, malaise, night sweats, diaphoresis, change in sleep pattern, daytime sleepiness or snoring Eyes: Denies: change in vision, blurry vision, photophobia, eye discomfort or eye discharge ENMT: Denies: throat pain, enlarged tonsils, hoarseness, mouth pain, oral sores/lesions, dry mouth, tinnitus, nasal congestion or post nasal drip Card: Denies: chest pain, palpitations, irregular heart rhythm, edema, swelling of feet/ankles, lightheadedness, syncope, pre-syncope, shortness of breath on exertion, shortness of breath when lying down, leg pain with exertion or bluish discoloration of hands/feet Resp: Denies: shortness of breath, productive cough, non-productive cough, wh eezing, stridor, pain on inspiration, change in phlegm color, coughing up blood or chest congestion GI: Denies: abdominal pain, nausea, vomiting, vomiting blood, coffee grounds in vomit, difficulty swallowing, heartburn/indigestion, diarrhea, constipation, bloating, cramping, change in bowel habits, painful bowel movements, blood in stool or black tarry stool : Denies: flank pain, painful urination, urinary frequency, urinary urgency, urinary hesitancy, nighttime urination or blood in urine Musc: Denies: neck pain, back pain, extremity pain, joint pain, joint swelling, redness, joint stiffness or limited range of motion Neuro: Denies: headache, numbness in extremities, weakness in extremities, changes in sensation, lack of coordination, difficulty walking, frequent falls, dizziness, vertigo, confusion, slurred speech, difficulty communicating thoughts or seizure-like activity Psych: Denies: anxiety, depression, mood swings, panic attacks, hopelessness or irritability Endo: Denies: excessive urination, excessive thirst, tired all the time, cold intolerance, excessive sweating, flushing or heat intolerance Festus/Lymph: Denies: easy bruising or easy bleeding All/Imm: Denies: tongue swelling, facial swelling or acute wheezing Medications/Allergies Home Medications Medication Instructions Recorded Confirmed Last Taken Type Breo Ellipta 1 inh INHALATION DAILY 08/01/19 08/23/19 07/31/19 History albuterol sulfate 2.5 mg INHALATION Q4H PRN 08/01/19 08/23/19 Unknown History duloxetine 60 mg PO DAILY 08/01/19 08/23/19 07/31/19 History fentanyl 1 patch TRANSDERMAL Q72H 08/01/19 08/23/19 07/29/19 History fluticasone propionate 2 spray INTRANASAL DAILY 08/01/19 08/23/19 Unknown History gabapentin 400 mg PO BID 08/01/19 08/23/19 07/31/19 History hydrocodone-acetaminophen 1 - 2 tab PO Q6H PRN 08/01/19 08/23/19 07/31/19 History levothyroxine 75 mcg PO DAILY 08/01/19 08/23/19 07/31/19 History lorazepam [Ativan] 1 mg PO Q6H PRN 08/01/19 08/23/19 Unknown History metolazone 2.5 mg PO DAILY 08/01/19 08/23/19 07/31/19 History montelukast 10 mg PO DAILY 08/01/19 08/23/19 07/31/19 History nitroglycerin [Nitrostat] 0.4 mg SUBLINGUAL Q5M PRN 08/01/19 08/23/19 Unknown History ondansetron HCl [Zofran] 4 mg PO Q8H PRN 08/01/19 08/23/19 Unknown History pantoprazole 40 mg PO DAILY 08/01/19 08/23/19 07/31/19 History prednisone 2.5 mg PO DAILY 08/01/19 08/23/19 07/31/19 History lactobacillus combination no.9 4 See Rx Instructions .ROUTE .COMPLEX 08/09/19 08/23/19 Unknown History billion cell capsule tiotropium bromide 18 mcg capsule 1 cap INHALATION DAILY 08/09/19 08/23/19 Unknown History with inhalation device diltiazem HCl [Cartia XT] 180 mg PO DAILY 30 Days #30 cap 08/22/19 08/23/19 Unknown Rx ertapenem 1 gm IV Q24H 8 Days each 08/22/19 08/23/19 08/23/19 Rx furosemide [Lasix] 20 mg PO DAILY 30 Days #30 tab 08/22/19 08/23/19 07/31/19 Rx potassium chloride 20 meq PO BIDWM #0 tab 08/22/19 08/23/19 07/31/19 Rx nualxkkk-pfofhtkr-zho citrate See Rx Instructions .ROUTE .COMPLEX 08/23/19 08/23/19 Unknown History [Nauzene] afbcryexdsb-zdisflrzt-fhifnirl 1 inh INHALATION DAILY 08/23/19 08/23/19 Unknown History [Trelegy Ellipta] nitrofurantoin macrocrystal 100 mg PO BID 08/23/19 08/23/19 Unknown History [Macrodantin] Allergies Allergy/AdvReac Type Severity Reaction Status Date / Time meperidine [From Demerol] Allergy Intermediate ALGY-Hives Verified 08/23/19 20:04 metoclopramide [From Reglan] Allergy Intermediate ALGY-Hives Verified 08/23/19 20:04 Sulfa (Sulfonamide Allergy Intermediate ALGY-Hives Verified 08/23/19 20:04 Antibiotics) tape Allergy Intermediate ALGY-Rash Uncoded 08/23/19 20:04 PFSH Acute PFSH: Social History Smoking and tobacco status: current every day smoker cigarettes Years cigarettes smoked: 54 Quit status (tobacco): not considering quitting Alcohol intake: never Caregiver/support person: Yes Lives independently: Yes Household members: none Marital status: / Current occupational status: retired and disabled History of recent travel: No Current gender identity: Female Vitals/I&O/Wt Last Vital Signs Temp 98.3 F 08/23/19 14:19 Pulse 137 H 08/23/19 16:48 Resp 16 08/23/19 14:19 BP 154/136 08/23/19 16:48 Pulse Ox 97 08/23/19 16:48 Weight last 48 hrs Weight 102.058 kg Physical Exam Narrative: EXAM NARRATIVE: General: No acute distress, AO x3 HEENT: PERRLA, pupils bilaterally equal and reactive Chest: Normal vesicular breath sounds, no added sounds, equal good air entry bilaterally CVS: S1-S2 regular, no murmurs, no tachycardia, no gallops, no rubs Abdomen: Soft, nontender, no organomegaly, bowel sounds present Neuro: No focal deficits, no facial deformity, AO x3, power 5/5 in all limbs Data : 08/24/19 05:30 08/24/19 05:30 Micro: Microbiology 08/23/19 14:53 Blood Culture - Preliminary Blood SPECIMEN COLLECTED 08/23/19 14:50 Blood Culture - Preliminary Blood SPECIMEN COLLECTED A&P Assessment and plan (1) Intractable nausea and vomiting: Status: Acute (2) GERD (gastroesophageal reflux disease): Status: Acute (3) Urinary tract infection due to ESBL Klebsiella: Status: Acute (4) Pyelonephritis: Status: Acute (5) COPD (chronic obstructive pulmonary disease): Status: Acute (6) Sleep apnea: Status: Acute (7) CHF (congestive heart failure): Status: Acute (8) IBS (irritable bowel syndrome): Status: Acute Additional A&P Information 68-year-old female with past medical history of GERD, IBS, diastolic heart failure, severe COPD recent discharge 1 day ago when she was treated for ESBL E. coli UTI on ertapenem with PICC line who presents today complaining of intractable vomiting and episode of diarrhea. Intractable nausea and vomiting: Most likely due to severe gastritis with history of GERD while being on low-dose prednisone along with pyelonephritis but cannot rule out hepatic pathology and will have to rule out CAD because of history of A. fib and congestive heart failure. Lipase normal. CT abdomen negative for SBO but suggestive of liver steatosis, normal liver function tests with mildly elevated alkaline phosphatase and a history of cholecystectomy. Check liver ultrasound, trend troponins. For now we will stop prednisone. We will start patient on Protonix 40 mg IV twice daily, will give GI cocktail once along with Zofran, promethazine, Maalox as needed. We will continue patient on clear liquid diet for tonight, we will try to advance gradually as patient symptoms improve. Gentle IV hydration with normal saline at 50 cc/h. ESBL E. coli UTI/pyelonephritis: Patient was discharged on ertapenem with 8 doses left. Patient did receive ertapenem today morning. We will switch to imipenem at renal dose from tomorrow morning. CT abdomen results appreciated. Diarrhea: Most likely due to recent dulcolax. Can not r/o C.diff. Will check. COPD: Start patient on DuoNeb's every 6 hours, budesonide twice daily. Oxygen supplementation keeping saturation 90%. History of diastolic heart failure: Last echo from 2015 shows a normal EF, grade 2 diastolic dysfunction, sclerosed aortic valve. We will hold off on diuresis for now. Repeat echocardiogram. Will monitor for fluid overload. LAURA: Baseline creatinine from 2017 seems to be 1.0. On previous admission was as high as 2.9. Creatinine almost at baseline at work was discharged yesterday. Medical reconciliation done for nephrotoxic drugs. No metabolic acidosis. Will monitor BMP daily. Hypokalemia: Potassium 2.8. We will replete with potassium chloride 40 mEq 2 doses IV. We will monitor potassium in the morning. A. fib: Continue on home dose of Cardizem. Patient is available to tolerate medications orally for now. If not will convert to IV Cardizem. Patient is not on anticoagulation most likely because of history of GI bleed. Patient's vomiting does not improve will most likely need endoscopy for further work-up. Cannot rule out postcholecystectomy syndrome. Full code. Heparin 5 5000 subcu every 12 hours Liquid diet. Attestations Medical Necessity Statement*: More than 2 midnights for intractable vomiting Time Spent in Patient Care: Greater than 35 minutes Coding Level of Care Code Acute Program Engineer for Chg Fwd Diagnoses Intractable nausea and vomiting R11.2 GERD (gastroesophageal reflux disease) K21.9 Urinary tract infection due to ESBL Klebsiella N39.0; B96.89 Pyelonephritis N12 COPD (chronic obstructive pulmonary disease) J44.9 Sleep apnea G47.30 CHF (congestive heart failure) I50.9 IBS (irritable bowel syndrome) K58.9
[2019-08-23 18:25] LABS: Magnesium 2.8 mg/dL (1.7-2.3); NT Pro B Type Natriuretic Pept 373 pg/mL (0-125)
--- NOTE | 2019-08-23 18:59 | PC.NURSE ---
Report received from Fer KIRKLAND, and care transferred to ISAEL Isidro
[2019-08-23] MEDS: morphine 4 mg/mL SDV 1 mL IVP (19:01)
[2019-08-23] MEDS: pantoprazole 40 mg SDV IVP (19:01)
[2019-08-23 19:13] LABS: Troponin(5th) Baseline 21 ng/mL (0-10)
[2019-08-23 19:20] LABS: Procalcitonin 0.18 ng/mL (0-0.5); Thyroid Stimulating Hormone 1.85 uIU/mL (0.27-4.20)
[2019-08-23 19:30] LABS: Iron 105 ug/dL (37-145); Percent Saturation 30.9 % (20-50); Total Iron Binding Capacity 339 mcg/dl; Unsaturated Iron Binding 234 ug/dL (112-347)
[2019-08-23] MEDS: sodium chloride 0.9% 1,000 ML 50 ML IV (20:14)
[2019-08-23 20:42] LABS: Troponin 5 2HR 21.25 ng/mL (0-10); Troponin 5 2HR Delta 0.25 ABS# (0-10)
[2019-08-23] MEDS: lidocaine 2% viscous 15 ML, aluminum-mag hydrox-simethicon 30 ML, sucralfate oral liq 1 GM PO (21:34)
[2019-08-23] MEDS: fentaNYL 50 mcg Patch 1 PATCH TRANSDERMA (21:35)
[2019-08-23] MEDS: heparin 5,000 unit/mL INJ 1 mL 5000 UNIT SUBCUT (21:39)
[2019-08-23] MEDS: HYDROcodone-acetaminophen 5-325 mg Tablet 1 TAB PO (21:45)
[2019-08-23] MEDS: gabapentin 400 mg Capsule PO (21:46)
[2019-08-23] MEDS: budesonide 0.5 mg/2 mL Neb INHALATION (22:26)
[2019-08-23] MEDS: ipratropium-albuterol 3 mL Neb INHALATION (22:27)
--- NOTE | 2019-08-23 23:33 | ECG_ITS ---
Measurements Intervals [place] Rate: 118 P: 56 OR: 140 QRS: -27 QRSD: 85 T: 65 QT: 318 QTc: 446 SINUS TACHYCARDIA LOW QRS VOLTAGE IN PRECORDIAL LEADS [QRS DEFLECTION < 1.0 mV IN CHEST LEADS] POSSIBLE ANTERIOR MYOCARDIAL INFARCTION [30 ms Q WAVE IN V3/V4, OR R < 0.2 mV IN V4], PROBABLY OLD Compared to ECG 08/19/2019 17:10:45 Low QRS voltage now present Myocardial infarct finding now present T-wave abnormality no longer present Electronically Signed On 08-25-2019 16:12:52 CDT by Elli Cruz M.D. [id number]
[2019-08-24] VITALS (10 sets, daily range): BP systolic 102–126; BP diastolic 66–79; PULSE 74–121; RESP 18–98; TEMP 36.4–36.9; O2SAT 95–100; BMI 45.3
[2019-08-24 00:14] LABS: Troponin 5 6HR 23.13 ng/mL (0-10); Troponin 5 6HR Delta 2.13 ng/L (0-12)
[2019-08-24] MEDS: pantoprazole 40 mg SDV IVP ×2 (05:35→17:07)
[2019-08-24 06:06] LABS: Basophils % 0.5 %; Eosinophils # 0.4 10^3/uL (0.0-0.8); Eosinophils % 5.4 %; Hematocrit 38.3 % (37.0-47.0); Hemoglobin 11.4 g/dL (11.5-15.3); Lymphocytes # 1.6 10^3/uL (0.8-4.8); Lymphocytes % 19.3 %; Mean Corpuscular HGB Conc 29.8 g/dL (30.0-36.0); Mean Corpuscular Hemoglobin 25.9 pg (28.0-34.0); Mean Corpuscular Volume 86.8 fL (81-99); Mean Platelet Volume 10.5 fL (7.4-10.4); Monocytes # 0.9 10^3/uL (0.2-0.9); Monocytes % 10.6 %; Neutrophils # 5.1 10^3/uL (1.8-7.7); Neutrophils % 63.1 %; Nucleated Red Blood Cells % 0 %; Platelet Count 373 10^3/cmm (130-400); Red Blood Count 4.41 10^6/uL (4.1-5.3); Red Cell Distribution Width 16.7 % (12.1-15.1); White Blood Count 8.1 10^3/uL (4.0-10.0)
[2019-08-24 06:19] LABS: Alanine Aminotransferase 13 U/L (0-33); Alkaline Phosphatase 104 IU/L (35-105); Anion Gap 16.5 (5-19); Aspartate Amino Transferase 22 U/L (0-32); Blood Urea Nitrogen 31 mg/dL (8-23); Calcium 8.1 mg/dL (8.5-10.5); Carbon Dioxide 32 mmol/L (22-29); Chloride 93 mmol/L (98-107); Globulin 2.8 g/dL (1.3-4.6); Glomerular Filtration Rate 24.8 mL/min (90-130); Glucose 122 mg/dL (65-115); Magnesium 2.6 mg/dL (1.7-2.3); Osmolality Calculated 284 mOsm/kg (285-295); Phosphorus 2.8 mg/dL (2.5-4.5); Potassium 3.5 mmol/L (3.5-5.1); Sodium 138 mmol/L (136-145); Total Bilirubin 0.3 mg/dL (0.15-1.2); Total Protein 5.8 g/dL (6.6-8.7)
[2019-08-24] MEDS: HYDROcodone-acetaminophen 5-325 mg Tablet 1 TAB PO (07:19)
[2019-08-24 08:01] LABS: Potassium, Radom Urine 76 mmol/L; Urine Creatinine 280 mg/dL (28-217); Urine Random Chloride 36 mmol/L; Urine Random Sodium 32 mmol/L
[2019-08-24] MEDS: sodium chloride 0.9% 1,000 ML 50 ML IV (08:34)
[2019-08-24] MEDS: heparin 5,000 unit/mL INJ 1 mL 5000 UNIT SUBCUT ×2 (08:35→21:15)
[2019-08-24] MEDS: levothyroxine 150 mcg Tablet 75 MCG PO (08:35)
[2019-08-24] MEDS: gabapentin 400 mg Capsule PO ×2 (08:36→17:05)
[2019-08-24] MEDS: dilTIAZem ER (24HR) 180 mg Capsule PO (08:36)
[2019-08-24] MEDS: duloxetine 60 mg Capsule PO (09:11)
[2019-08-24] MEDS: fluticasone nasal spray 16gm Btl 2 SPRAY INTRANASAL (09:11)
[2019-08-24 09:15] LABS: Eosinophil Urine No Eosinophils Seen; Urine Eosinophil Count 0 (0-0)
--- NOTE | 2019-08-24 10:36 | PC.CHAP ---
Pastoral Care Encounter/Spiritual Assessment Type of Contact [x] Declined wall attendant visit [] Patient/Family/Request visit [] Outpatient visit [] Follow-up visit [] Physician referral [] Code/Alert [] Routine visit [] Staff referral [] Actively dying [] Patient sleeping [] Family support [] [] Out of room [] Palliative care [] [] Receiving care in room [] Pre-surgical visit [] Trauma [] Long length of stay [] ICU visit [] Other: Relational/Emotional Strength [] Patient feels connected with others/family/visitors/staff [] Distress [] Loneliness/isolation [] Abandonment Spirituality of Patient [] Person of Cris [] Attends Bahai of their Cris [] Believes in Prayer [] Reads Bible or Episcopalian materials [] There are Spiritual issues to be addressed Budget Counselor Interventions [] Prayer [] Active listening [] Non-anxious presence [] Spiritual/emotional support [] Crisis/trauma care [] Spiritual counseling [] Bereavement support [] Provided bereavement packet [] Provided Bible/devotional materials [] Provided toy/stuffed animal, coloring book to patient or family member [] Provided Communion [] Anointing/Tehama [] Salvation [] Completed spiritual assessment [] Other: Impact on Illness or Injury [] Angry [] Fearful [] Anxious [] Often cries [] Exhaustion [] Unable to work [] Unable to attend judaism [] Unable to walk/stand [] Unable to read [] Unable to drive [] Unable to eat/drink [] Unable to sleep [] Unable to be with family [] Patient intubated [] Other: Summary Time spent with patient
[2019-08-24] MEDS: ondansetron 2 mg/ML SDV 2 mL 4 MG IVP ×2 (11:41→23:09)
--- NOTE | 2019-08-24 12:43 | P.PN_ITS ---
Subjective Subjective: Interval history: Nausea are better since last night but patient is too scared to eat or drink. She denies of feeling any palpitations, headache, dizziness. Tolerated clear liquid diet well. Patient states GI cocktail really helped her symptoms. Labs and vitals noted. Vitals/I&O/Wt Last Vital Signs Temp 97.9 F 08/24/19 12:04 Pulse 121 H 08/24/19 12:04 Resp 18 08/24/19 12:04 BP 102/74 08/24/19 12:04 Pulse Ox 100 08/24/19 12:04 08/23/19 08/24/19 08/24/19 22:59 06:59 14:59 Intake Total 617.5 / 617.5 650.833 / 8200.650 8099.167 / 1079.167 Output Total 0 / 0 50 / 50 Balance 617.5 / 617.5 650.833 / 9219.185 4198.167 / 1029.167 Weight last 48 hrs Weight 101.741 kg Weight 101.65 kg Weight 101.65 kg Weight 102.058 kg Physical Exam Narrative: EXAM NARRATIVE: General: No acute distress, AO x3, morbidly obese HEENT: PERRLA, pupils bilaterally equal and reactive Chest: Normal vesicular breath sounds, no added sounds, equal good air entry bilaterally CVS: S1-S2 irregularly irregular, no murmurs, no tachycardia, no gallops, no rubs Abdomen: Soft, nontender, no organomegaly, bowel sounds present Neuro: No focal deficits, no facial deformity, AO x3, power 5/5 in all limbs Data : 08/24/19 05:30 08/24/19 05:30 Micro: Microbiology 08/23/19 18:41 Stool Lactoferrin - Final Stool C.difficile Toxin B Gene (PCR) - Final Occult Blood (FIT) - Final 08/23/19 14:53 Blood Culture - Preliminary Blood SPECIMEN COLLECTED 08/23/19 14:50 Blood Culture - Preliminary Blood SPECIMEN COLLECTED A&P Assessment and plan (1) Intractable nausea and vomiting: Status: Acute (2) GERD (gastroesophageal reflux disease): Status: Acute (3) Urinary tract infection due to ESBL Klebsiella: Status: Acute (4) Pyelonephritis: Status: Acute (5) COPD (chronic obstructive pulmonary disease): Status: Acute (6) Sleep apnea: Status: Acute (7) CHF (congestive heart failure): Status: Acute (8) Afib: Status: Acute (9) IBS (irritable bowel syndrome): Status: Acute Additional A&P Information 68-year-old female with past medical history of GERD, IBS, diastolic heart failure, severe COPD recent discharge 1 day ago when she was treated for ESBL E. coli UTI on ertapenem with PICC line who presents today complaining of intractable vomiting and episode of diarrhea. Intractable nausea and vomiting: Most likely due to severe gastritis with history of GERD while being on low-dose prednisone along with pyelonephritis but cannot rule out hepatic pathology and will have to rule out CAD because of history of A. fib and congestive heart failure. Lipase normal. CT abdomen negative for SBO but suggestive of liver steatosis, normal liver function tests with mildly elevated alkaline phosphatase and a history of cholecystectomy. Troponins negative, liver ultrasound results appreciated. Symptoms most likely secondary to gastritis because of being on prednisone with history of GERD in the past. Continue with Protonix 40 mg IV every 12 hourly, Zofran promethazine and Valtrex as needed. Gentle hydration with normal saline 50 cc/h. We will advance from clear liquid to full liquid today and see how she does. Atrial fibrillation: Increased with home dose of Cardizem drip to 40 mg daily. We will give an extra 10 mg IV push after checking blood pressure. We will give a blood pressure more than 120/70 mmHg. Add Lopressor 25 mg twice daily to treatment. ESBL E. coli UTI/pyelonephritis: Patient was discharged on ertapenem with 8 doses left. Patient did receive ertapenem today morning. Imipenem while being in hospital. CT abdomen results appreciated. Diarrhea: Infectious cause ruled out. Continue with gentle IV hydration. COPD: Start patient on DuoNeb's every 6 hours, budesonide twice daily. Oxygen supplementation keeping saturation 90%. History of diastolic heart failure: Last echo from 2016 shows a normal EF, grade 2 diastolic dysfunction, sclerosed aortic valve. We will hold off on diuresis for now. Results awaited. Monitor for fluid overload. LAURA: Baseline creatinine from 2017 seems to be 1.0. On previous admission was as high as 2.9. Creatinine almost at baseline at work was discharged yesterday. Medical reconciliation done for nephrotoxic drugs. No metabolic acidosis. Will monitor BMP daily. Hypokalemia: Resolved Patient's vomiting does not improve will most likely need endoscopy for further work-up. Cannot rule out postcholecystectomy syndrome. Full code. Heparin 5000 subcu every 12 hours Full liquid diet. Attestations Medical Necessity Statement*: Intractable nausea vomiting, atrial fibrillation Coding Level of Care Code Acute Public Policy Analyst for Chg Fwd Diagnoses Intractable nausea and vomiting R11.2 GERD (gastroesophageal reflux disease) K21.9 Urinary tract infection due to ESBL Klebsiella N39.0; B96.89 Pyelonephritis N12 COPD (chronic obstructive pulmonary disease) J44.9 Sleep apnea G47.30 CHF (congestive heart failure) I50.9 Afib I48.91 IBS (irritable bowel syndrome) K58.9
[2019-08-24] MEDS: metoprolol tartrate 25 mg Tablet PO (17:05)
--- NOTE | 2019-08-24 17:34 | US_ITS ---
WS: [id number] RIGHT UPPER QUADRANT ULTRASOUND HISTORY: vomiting COMPARISON: None available. Liver: 18.9 cm in length. Moderately enlarged liver with hepatic steatosis. There is marked attenuati on from steatosis. No bile duct dilatation or mass. Gallbladder: Prior cholecystectomy. CBD: 1.1 cm Pancreas: Poorly visualized tail. The remaining pancreas is negative. Right kidney: 10.5 cm in length. Normal echogenicity with no mass or hydronephrosis. Aorta and IVC: Unremarkable. No ascites. US/US liver [id number] IMPRESSION: 1. Prior cholecystectomy. 2. Marked hepatomegaly and hepatic steatosis. 3. Dilated common bile duct. May be in part due to the prior cholecystectomy. On the recent CT no stones were identified in the common bile duct and there kyle s been no increase in size. Suspect this is physiologic dilatation. Similar kris earance of the common bile duct since 2017.
--- NOTE | 2019-08-24 17:34 | USCV_ITS ---
Nina Kang Age: 68 Gender: F : 1950 Exam Date: 08/24/2019 06:19 Ordering Phys: Ramana Kellogg MD Technologist: Xuan Aguilar Exam Location: [facility] [place] Indication: CHF BP: / HR: 133 Rhythm: Sinus Technical Quality: TDS MEASUREMENTS (Male / Female) Normal Values 2D ECHO LV Diastolic Diameter PLAX 3.5 cm 4.2 - 5.9 / 3.9 - 5.3 cm LV Systolic Diameter PLAX 2.7 cm LV Chamber Size 2.3 cm IVS Diastolic Thickness 1.6 cm 0.6 - 1.0 / 0.6 - 0.9 cm IVS Systolic Thickness 2.0 cm LVPW Diastolic Thickness 1.1 cm 0.6 - 1.0 / 0.6 - 0.9 cm LVPW Systolic Thickness 1.8 cm RV Chamber Size 1.8 cm LVOT Diameter 2.1 cm LV Ejection Fraction 2D Teich 46.8 % LA Diameter 3.2 cm LA Width 2.7 cm LA Height 4.5 cm RA Width 2.6 cm RA Height 3.6 cm Aorta at Sinotubular Diameter 3.3 cm M-MODE LV Diastolic Diameter MM 4.8 cm 4.2 - 5.9 / 3.9 - 5.3 cm LV Systolic Diameter MM 2.8 cm LV Ejection Fraction MM Teich 72.2 % IVS Diastolic Thickness MM 0.9 cm 0.6 - 1.0 / 0.6 - 0.9 cm IVS Systolic Thickness MM 1.3 cm LVPW Diastolic Thickness MM 1.0 cm 0.6 - 1.0 / 0.6 - 0.9 cm LVPW Systolic Thickness MM 1.8 cm RV Diastolic Diameter MM 1.3 cm Aortic Annulus Diameter 4.1 cm LA Ao Ratio MM 0.8 MV E Point Septal Separation 0.9 cm DOPPLER AV Peak Velocity 133.0 cm/s LVOT Peak Velocity 86.0 cm/s AV Area Cont Eq vti 2.3 cm squared AV Area Cont Eq pk 2.2 cm squared MV Area PHT 5.1 cm squared MV E' Velocity 8.0 cm/s Mitral E to MV E' Ratio 11.4 Mitral E to LV E' Lateral Ratio 11.4 Mitral E to LV E' Septal Ratio 11.5 TR Peak Velocity 137.6 cm/s TR Peak Gradient 7.6 mmHg TR Mean Velocity 69.6 cm/s TR Mean Gradient 3.0 mmHg TR Velocity Time Integral 22.6 cm TV Peak E Velocity 57.0 cm/s Right Atrial Pressure 3.0 mmHg Pulmonary Artery Systolic Pressu 10.6 mmHg PV Peak Velocity 113.0 cm/s RV Acceleration Time 0.1 s RV Ejection Time 0.2 s RV AcT/ET 0.4 FINDINGS Left Ventricle Normal left ventricular cavity size. Normal left ventricular systolic function. Left ventricular ejection fraction is estimated at 65 %. Although no diagnostic regional wall motion abnormality could be rectified, this possibility cannot be completely excluded based on the study. Grade I diastolic dysfunction (abnormal relaxation filling pattern), normal to mildly elevated filling pressures. Right Ventricle Normal right ventricular size and systolic function. Right ventricular systolic pressure 10.6 mmHg. Right Atrium Normal right atrial size. Left Atrium Left atrium not well visualized. Mitral Valve Mitral valve not well visualized. Aortic Valve Aortic valve not well visualized. No aortic valve stenosis. Tricuspid Valve Structurally normal tricuspid valve. Trace to mild tricuspid valve regurgitation. Pulmonic Valve Pulmonic valve not well visualized. Pericardium No pericardial effusion. Echo free space anterior to the right ventricle likely represents a fat pad. Aorta Normal-sized aortic root. CONCLUSIONS 1. This is a technically difficult study. 2. Normal left ventricular cavity size and systolic function. Left ventricular ejection fraction is estimated at 65 %. Although no diagnostic regional wall motion abnormality could be rectified, this possibility cannot be completely excluded based on the study. Grade I diastolic dysfunction (abnormal relaxation filling pattern), normal to mildly elevated filling pressures. 3. Normal right ventricular size and systolic function. 4. No significant valvular abnormality. 5. When compared to previous echocardiogram dated 11/26/2015, there may not have been any significant change. Elli Cruz MD (Electronically Signed) Final Date: 24 August 2019 13:24 S
[2019-08-24] MEDS: budesonide 0.5 mg/2 mL Neb INHALATION (20:08)
[2019-08-24] MEDS: ipratropium-albuterol 3 mL Neb INHALATION (20:08)
[2019-08-24] MEDS: montelukast sodium 10 mg Tablet PO (21:15)
[2019-08-24] MEDS: alum-mag-hydroxide-sime 30 mL UDC 15 ML PO (23:12)
[2019-08-25] VITALS (8 sets, daily range): BP systolic 103–126; BP diastolic 71–81; PULSE 83–124; RESP 17–18; TEMP 36.6–37.2; O2SAT 96–100
[2019-08-25] MEDS: pantoprazole 40 mg SDV IVP ×2 (05:11→18:47)
[2019-08-25 06:20] LABS: Magnesium 2.6 mg/dL (1.7-2.3)
[2019-08-25] MEDS: heparin 5,000 unit/mL INJ 1 mL 5000 UNIT SUBCUT ×2 (08:54→20:19)
[2019-08-25] MEDS: gabapentin 400 mg Capsule PO ×2 (08:54→18:55)
[2019-08-25] MEDS: duloxetine 60 mg Capsule PO (08:55)
[2019-08-25] MEDS: dilTIAZem ER (24HR) 240 mg Capsule PO (08:55)
[2019-08-25] MEDS: levothyroxine 150 mcg Tablet 75 MCG PO (08:55)
[2019-08-25] MEDS: metoprolol tartrate 25 mg Tablet PO ×2 (08:56→18:48)
[2019-08-25] MEDS: HYDROcodone-acetaminophen 5-325 mg Tablet 1 TAB PO ×2 (13:41→20:19)
[2019-08-25] MEDS: sodium chloride 0.9% 1,000 ML 50 ML IV (15:40)
[2019-08-25] MEDS: ondansetron 2 mg/ML SDV 2 mL 4 MG IVP (18:52)
--- NOTE | 2019-08-25 19:19 | PM.PN ---
Subjective Subjective: Interval history: No acute events overnight. Patient's heart rate is a lot better controlled. Patient is tolerating full liquid diet well. Denies of having any headaches, vomiting, diarrhea, abdominal pain, dysuria. Patient still remains scared of eating and needs constant encouragement. Labs and vitals noted. Vitals/I&O/Wt Last Vital Signs Temp 98 F 08/25/19 15:44 Pulse 87 08/25/19 15:44 Resp 18 08/25/19 15:44 BP 111/72 08/25/19 15:44 Pulse Ox 96 08/25/19 15:44 08/25/19 08/25/19 08/25/19 06:59 14:59 22:59 Intake Total 1100 / 3009.167 700 / 700 Balance 1100 / 2759.167 700 / 700 Weight last 48 hrs Weight 102.194 kg Weight 101.741 kg Weight 101.65 kg Weight 101.65 kg Physical Exam Narrative: EXAM NARRATIVE: General: No acute distress, AO x3, morbidly obese HEENT: PERRLA, pupils bilaterally equal and reactive Chest: Normal vesicular breath sounds, no added sounds, equal good air entry bilaterally CVS: S1-S2 irregularly irregular, no murmurs, no tachycardia, no gallops, no rubs Abdomen: Soft, nontender, no organomegaly, bowel sounds present Neuro: No focal deficits, no facial deformity, AO x3, power 5/5 in all limbs Data : 08/24/19 05:30 08/24/19 05:30 Micro: Microbiology 08/23/19 14:53 Blood Culture - Preliminary Blood NEGATIVE TO DATE 08/23/19 14:50 Blood Culture - Preliminary Blood NEGATIVE TO DATE A&P Assessment and plan (1) Intractable nausea and vomiting: Status: Acute (2) GERD (gastroesophageal reflux disease): Status: Acute (3) Urinary tract infection due to ESBL Klebsiella: Status: Acute (4) Pyelonephritis: Status: Acute (5) COPD (chronic obstructive pulmonary disease): Status: Acute (6) Sleep apnea: Status: Acute (7) CHF (congestive heart failure): Status: Acute (8) Afib: Status: Acute (9) IBS (irritable bowel syndrome): Status: Acute Additional A&P Information 68-year-old female with past medical history of GERD, IBS, diastolic heart failure, severe COPD recent discharge 1 day ago when she was treated for ESBL E. coli UTI on ertapenem with PICC line who presents today complaining of intractable vomiting and episode of diarrhea. Intractable nausea and vomiting: Most likely due to severe gastritis with history of GERD while being on low-dose prednisone along with pyelonephritis. Pancreatitis ruled out. Liver pathology ruled out. CAD ruled out. Very low chance of postcholecystectomy syndrome. Troponins negative, liver ultrasound results appreciated. Continue with Protonix 40 mg IV every 12 hourly, Zofran, promethazine as needed. Advance diet further to bland diet. Atrial fibrillation: Rate better controlled with Cardizem 240 mg daily and metoprolol 25 mg twice daily. Not on anticoagulation because of history of GI bleed. CHADS-Vasc- 4, HASBLED- 4 ESBL E. coli UTI/pyelonephritis: Patient was discharged on ertapenem with 8 doses left. Patient did receive ertapenem today morning. Imipenem while being in hospital. CT abdomen results appreciated. Diarrhea: Resolved. Infectious cause ruled out. Continue with gentle IV hydration. COPD: Start patient on DuoNeb's every 6 hours, budesonide twice daily. Oxygen supplementation keeping saturation 90%. History of diastolic heart failure: Last echo from 2016 shows a normal EF, grade 2 diastolic dysfunction, sclerosed aortic valve. We will hold off on diuresis for now. Results awaited. Monitor for fluid overload. LAURA: Baseline creatinine from 2017 seems to be 1.0. On previous admission was as high as 2.9. Creatinine almost at baseline at work was discharged yesterday. Medical reconciliation done for nephrotoxic drugs. No metabolic acidosis. Will monitor BMP daily. Hypokalemia: Resolved Patient's vomiting does not improve will most likely need endoscopy for further work-up. Cannot rule out postcholecystectomy syndrome. Full code. Heparin 5000 subcu every 12 hours Full liquid diet. Attestations Medical Necessity Statement*: Intractable nausea vomiting, pyelonephritis, atrial fibrillation Time Spent in Patient Care: Greater than 35 minutes Coding Level of Care Code Acute Calibrator Barometers for [facility] Fwd Diagnoses Intractable nausea and vomiting R11.2 GERD (gastroesophageal reflux disease) K21.9 Urinary tract infection due to ESBL Klebsiella N39.0; B96.89 Pyelonephritis N12 COPD (chronic obstructive pulmonary disease) J44.9 Sleep apnea G47.30 CHF (congestive heart failure) I50.9 Afib I48.91 IBS (irritable bowel syndrome) K58.9
[2019-08-25] MEDS: promethazine 25 mg/mL SDV 1 mL 12.5 MG IM (19:49)
[2019-08-25] MEDS: montelukast sodium 10 mg Tablet PO (20:19)
[2019-08-25] MEDS: LORazepam 1 mg Tablet 0.5 MG PO (22:59)
[2019-08-26] VITALS (7 sets, daily range): BP systolic 100–109; BP diastolic 58–66; PULSE 71–106; RESP 18; TEMP 36.7–36.8; O2SAT 96–100
[2019-08-26] MEDS: ipratropium-albuterol 3 mL Neb INHALATION (03:54)
[2019-08-26] MEDS: pantoprazole 40 mg SDV IVP (05:41)
[2019-08-26 06:21] LABS: Basophils # 0.1 10^3/uL (0.0-0.1); Basophils % 0.7 %; Eosinophils # 0.5 10^3/uL (0.0-0.8); Eosinophils % 5.9 %; Hematocrit 35.8 % (37.0-47.0); Hemoglobin 10.4 g/dL (11.5-15.3); Lymphocytes # 1.9 10^3/uL (0.8-4.8); Lymphocytes % 24.7 %; Mean Corpuscular HGB Conc 29.1 g/dL (30.0-36.0); Mean Corpuscular Hemoglobin 25.7 pg (28.0-34.0); Mean Corpuscular Volume 88.6 fL (81-99); Mean Platelet Volume 10.1 fL (7.4-10.4); Monocytes # 0.7 10^3/uL (0.2-0.9); Monocytes % 9.4 %; Neutrophils # 4.4 10^3/uL (1.8-7.7); Neutrophils % 57.6 %; Nucleated Red Blood Cells % 0 %; Platelet Count 251 10^3/cmm (130-400); Red Blood Count 4.04 10^6/uL (4.1-5.3); Red Cell Distribution Width 16.8 % (12.1-15.1); White Blood Count 7.7 10^3/uL (4.0-10.0)
[2019-08-26 06:42] LABS: Alanine Aminotransferase 15 U/L (0-33); Albumin Level 2.7 g/dL (3.5-5.2); Alkaline Phosphatase 83 IU/L (35-105); Anion Gap 14.2 (5-19); Aspartate Amino Transferase 30 U/L (0-32); Blood Urea Nitrogen 22 mg/dL (8-23); Calcium 8.4 mg/dL (8.5-10.5); Carbon Dioxide 28 mmol/L (22-29); Chloride 101 mmol/L (98-107); Globulin 2.6 g/dL (1.3-4.6); Glomerular Filtration Rate 37.4 mL/min (90-130); Glucose 95 mg/dL (65-115); Osmolality Calculated 286 mOsm/kg (285-295); Potassium 3.2 mmol/L (3.5-5.1); Sodium 140 mmol/L (136-145); Total Bilirubin 0.2 mg/dL (0.15-1.2); Total Protein 5.3 g/dL (6.6-8.7)
[2019-08-26 06:46] LABS: Magnesium 2.3 mg/dL (1.7-2.3)
[2019-08-26] MEDS: HYDROcodone-acetaminophen 5-325 mg Tablet 1 TAB PO (07:32)
[2019-08-26] MEDS: heparin 5,000 unit/mL INJ 1 mL 5000 UNIT SUBCUT (07:42)
[2019-08-26] MEDS: dilTIAZem ER (24HR) 240 mg Capsule PO (09:35)
[2019-08-26] MEDS: duloxetine 60 mg Capsule PO (09:35)
[2019-08-26] MEDS: levothyroxine 150 mcg Tablet 75 MCG PO (09:35)
[2019-08-26] MEDS: gabapentin 400 mg Capsule PO (09:35)
[2019-08-26] MEDS: metoprolol tartrate 25 mg Tablet PO (09:36)
[2019-08-26] MEDS: fluticasone nasal spray 16gm Btl 2 SPRAY INTRANASAL (09:38)
--- NOTE | 2019-08-26 12:32 | P.DS_ITS ---
Discharge Providers Date of Admission: 08/23/19 17:12 Date of Discharge: August 26, 2019 Attending Provider at Admission: Ramana Kellogg MD Attending Provider at Discharge: Ramana Kellogg MD Primary Care Provider: Diomedes Wei DO Diagnoses at Discharge Discharge Diagnosis (1) Intractable nausea and vomiting: Status: Acute (2) GERD (gastroesophageal reflux disease): Status: Acute (3) Urinary tract infection due to ESBL Klebsiella: Status: Acute (4) Pyelonephritis: Status: Acute (5) COPD (chronic obstructive pulmonary disease): Status: Acute (6) Sleep apnea: Status: Acute (7) CHF (congestive heart failure): Status: Acute (8) Afib: Status: Acute (9) IBS (irritable bowel syndrome): Status: Acute Reason for Visit Reason for Visit: Reason For Visit: N/V BACK PAIN Hospital Course Discharge Summary: Nina Kang is a 68 year old female with past medical history of hypertension, hypothyroidism, A. fib, not on anticoagulation because of history of GERD and GI bleed, discharged 1 day ago after being treated for ESBL E. coli UTI on ertapenem. She was admitted last week with complaint of intractable vomiting and was found to have UTI. During that admission while being treated for UTI vomiting subsided while getting as needed 8 mg of Zofran. Patient also has history of IBS and during this admission was having constipation for which she was given Dulcolax suppository a day prior to discharge. Patient presents to the ER today complaining of epigastric pain and multiple episodes of vomiting. Patient states she is not able to keep anything down and vomits even with fluids. Vomitus is not bloodstained containing food particles and is bilious in color, not foul-smelling. Patient is also having 3-4 episodes of diarrhea which is not foul-smelling, slightly watery, not bloodstained. Blood work in the ER done today showed a creatinine of 1.9 with creatinine being 1.8 a day ago, liver functions at baseline with mildly elevated alkaline phosphatase, hypokalemia with potassium down to 2.8, CBC at baseline except white count being 13,000, CT abdomen pelvis done shows mild hepatomegaly with hepatic steatosis with no signs of GI obstruction. In the ER patient was given 2 doses of 4 mg of IV Zofran and Phenergan after which her vomiting subsided. Hospital service was requested for further evaluation and treatment. Patient was admitted to the hospital for intractable nausea and vomiting. She was started on Zofran and clear liquid diet which was gradually advanced to bland diet which she has been tolerating well for last 24 hours. Patient was found to be in A. fib with RVR which was treated with increasing her home dose of Cardizem and adding metoprolol to her regimen. She did require 2 boluses of IV Cardizem as well. It is most likely that patient has been having intractable nausea and vomiting because of severe gastritis given the history of gastric ulcers in the past and patient being on steroids as an outpatient. Prednisone has been withheld and patient has been discharged PPIs. Patient is advised to follow-up with surgery as an outpatient for EGD. Patient is to advance her diet gradually from bland diet within 1 week. Patient is to continue her dose of ertapenem as an outpatient to finish the course for ESBL E. coli UTI. Patient is been discharged in hemodynamically stable condition. Physical Exam Narrative: EXAM NARRATIVE: General: No acute distress, AO x3, morbidly obese HEENT: PERRLA, pupils bilaterally equal and reactive Chest: Normal vesicular breath sounds, no added sounds, equal good air entry bilaterally CVS: S1-S2 irregularly irregular, no murmurs, no tachycardia, no gallops, no rubs Abdomen: Soft, nontender, no organomegaly, bowel sounds present Neuro: No focal deficits, no facial deformity, AO x3, power 5/5 in all limbs Discharge Data Data Completed and Pending: Completed Studies During Hospitalization Category Date Time Status CT abdomen pelvis wo con [id number] Urge nt Cat Scan 08/23/19 14:32 Completed CV echo complete* [id number] Routine Ultrasound 08/24/19 17:34 Completed US liver [id number] Ur gent Ultrasound 08/24/19 17:34 Completed Pending at discharge Category Date Time Status Blood Culture Sta t Lab 08/23/19 14:53 Results Labs from last 24 hours 08/26/19 08/26/19 08/26/19 05:56 05:56 05:56 WBC 7.7 RBC 4.04 L Hgb 10.4 L Hct 35.8 L MCV 88.6 MCH 25.7 L MCHC 29.1 L RDW 16.8 H Plt Count 251 MPV 10.1 Neut % (Auto) 57.6 Lymph % (Auto) 24.7 Grainger % (Auto) 9.4 Eos % (Auto) 5.9 Baso % (Auto) 0.7 Neut # (Auto) 4.4 Lymph # (Auto) 1.9 Grainger # (Auto) 0.7 Eos # (Auto) 0.5 Baso # (Auto) 0.1 Nucleated RBC % (a uto) 0 Nucleated RBCs # 0.0 Sodium 140 Potassium 3.2 L Chloride 101 Carbon Dioxide 28 Anion Gap 14.2 BUN 22 Creatinine 1.4 H GFR Calculation 37.4 L Glucose 95 Calculated Osmolal ity 286 Calcium 8.4 L Magnesium 2.3 Total Bilirubin 0.2 AST 30 ALT 15 Alkaline Phosphata se 83 Total Protein 5.3 L Albumin 2.7 L Globulin 2.6 Vitals: Last Vital Signs Temp 98.0 F 08/26/19 11:37 Pulse 106 H 08/26/19 11:37 Resp 18 08/26/19 11:37 BP 106/58 08/26/19 11:37 Pulse Ox 100 08/26/19 11:37 Discharge Plan Discharge Patient Disposition: Home, Self-Care Condition: Stable Prescriptions: New diltiazem HCl 240 mg Capsule,Extended Release 24hr 240 mg PO DAILY Qty: 30 RF: 0 metoprolol tartrate 25 mg Tablet 25 mg PO BID Qty: 60 RF: 0 Continued Spiriva with HandiHaler 18 mcg capsule, w/inhalation device 1 cap INHALATION DAILY RF: 0 Adult 50 Plus Probiotic 4 billion cell capsule See Rx Instructions .ROUTE .COMPLEX RF: 0 fentanyl 50 mcg/hr Patch 72 Hour 1 patch TRANSDERMAL Q72H RF: 0 albuterol sulfate 2.5 mg /3 mL (0.083 %) Solution For Nebulization 2.5 mg INHALATION Q4H PRN (Reason: Shortness Of Breath) RF: 0 hydrocodone-acetaminophen 5-325 mg Tablet 1 - 2 tab PO Q6H PRN (Reason: Pain) RF: 0 ondansetron HCl [Zofran] 4 mg Tablet 4 mg PO Q8H PRN (Reason: Nausea) RF: 0 gabapentin 400 mg Capsule 400 mg PO BID RF: 0 levothyroxine 75 mcg Tablet 75 mcg PO DAILY RF: 0 pantoprazole 40 mg Tablet,Delayed Release (Dr/Ec) 40 mg PO DAILY RF: 0 nitroglycerin [Nitrostat] 0.4 mg Tablet, Sublingual 0.4 mg SUBLINGUAL Q5M PRN (Reason: Chest Pain) RF: 0 montelukast 10 mg Tablet 10 mg PO DAILY RF: 0 lorazepam [Ativan] 1 mg Tablet 1 mg PO Q6H PRN (Reason: Anxiety) RF: 0 fluticasone propionate 50 mcg/actuation [place],Suspension 2 spray INTRANASAL DAILY RF: 0 duloxetine 60 mg Capsule,Delayed Release(Dr/Ec) 60 mg PO DAILY RF: 0 Breo Ellipta 100-25 mcg/dose Blister With Device 1 inh INHALATION DAILY RF: 0 ertapenem 1 gram recon soln 1 gm IV Q24H 8 Days RF: 0 furosemide [Lasix] 20 mg Tablet 20 mg PO DAILY 30 Days Qty: 30 RF: 0 potassium chloride 20 mEq Tablet Extended Release 20 meq PO BIDWM Qty: 0 RF: 0 Macrodantin 100 mg Capsule 100 mg PO BID RF: 0 Nauzene 968-175-230 mg Tablet,Chewable See Rx Instructions .ROUTE .COMPLEX RF: 0 Trelegy Ellipta 100-62.5-25 mcg Blister With Device 1 inh INHALATION DAILY RF: 0 Changed metolazone 2.5 mg Tablet 2.5 mg PO MOWEFR Qty: 15 RF: 0 Discontinued prednisone 2.5 mg Tablet 2.5 mg PO DAILY RF: 0 diltiazem HCl [Cartia XT] 120 mg capsule,extended release 24hr 180 mg PO DAILY 30 Days Qty: 30 RF: 0 Discharge Orders: Discharge Order (Routine); Ordered 08/26/19 Ordered By: Ramana Kellogg Referrals: [facility] [Other] (This is the pharmacy that your IV medications are delivered from. If you have any questions or concerns regarding your IV medication, please call them at the number provided.) [facility] [Outside] Joey Torrez MD [Physician] - 2 weeks (for EGD, Recurrent N/V, H/o gastric ulcer) Diomedes Wei DO [Primary Care Provider] - 08/30/19 12:20 pm Discharge Diet: Advance as tolerated and As Directed Discharge Activity: Resume usual activity Activity Restrictions/Additional Instructions: Please have bland diet for next 7 days and advance as tolerated. Please f/u with Dr. Torrez for EGD as outpatient. Discharge Attestations Time Spent in Discharge Care*: greater than 30 min Specific Discharge Activities: Specific discharge activities: educating patient, discussing with case mgr/social workers/dc planners, documenting/other paperwork and evaluating patient/reviewing data Status at Discharge: Cognitive status at discharge: cognitively intact , Behavioral status at discharge: cooperative , Functional status at discharge: independent ambulation Overall status at discharge: patient is back to baseline Quality Metrics Clinical Quality Measures During this hospital stay, did patient experience: None Coding Level of Care Code Acute Outreach Representative for [facility] Fwd Diagnoses Intractable nausea and vomiting R11.2 GERD (gastroesophageal reflux disease) K21.9 Urinary tract infection due to ESBL Klebsiella N39.0; B96.89 Pyelonephritis N12 COPD (chronic obstructive pulmonary disease) J44.9 Sleep apnea G47.30 CHF (congestive heart failure) I50.9 Afib I48.91 IBS (irritable bowel syndrome) K58.9
--- NOTE | 2019-08-26 13:55 | PC.SOCIAL ---
Pg 2 IMM Explained to pt Pg 2 IMM. Pt verbally understands. No questions voiced. A copy was provided & left on pt's bedside table. Signed, dated, & timed a copy & placed in pt's chart.
== END 2019-08-26 15:09 | disposition home or self-care (01) | DRG 392 ==
LOC: ER 14:42 → MEDSURG 18:22
PROVIDERS: Admitting Provider Student in an Organized Health Care Education/Training Program; Emergency Provider Family Medicine; Family Provider Family Medicine; PCP Family Medicine; Visit Provider Student in an Organized Health Care Education/Training Program
DX: K29.70 Gastritis, unspecified, without bleeding (principal); I50.32 Chronic diastolic (congestive) heart failure; N39.0 Urinary tract infection, site not specified; N10 Acute pyelonephritis; N17.9 Acute kidney failure, unspecified; Z68.42 Body mass index [BMI] 45.0-49.9, adult; I11.0 Hypertensive heart disease with heart failure; E03.9 Hypothyroidism, unspecified; I48.91 Unspecified atrial fibrillation; K21.9 Gastro-esophageal reflux disease without esophagitis; B96.20 Unspecified Escherichia coli [E. coli] as the cause of diseases classified elsewhere; K58.9 Irritable bowel syndrome, unspecified; F17.210 Nicotine dependence, cigarettes, uncomplicated; G47.33 Obstructive sleep apnea (adult) (pediatric); J44.9 Chronic obstructive pulmonary disease, unspecified; K76.0 Fatty (change of) liver, not elsewhere classified; E87.6 Hypokalemia; E66.01 Morbid (severe) obesity due to excess calories; R16.0 Hepatomegaly, not elsewhere classified
CPT/HCPCS: 12345; 36415; 36592; 74176; 76705; 80053; 81003; 82274; 82436; 82570; 83540; 83550; 83605; 83630; 83690; 83735; 83880; 84100; 84133; 84145; 84300; 84443; 84484; 85025; 85999; 87040; 87493; 87506; 93005; 93306; 94640; 94664; 96372; 96375; 99283; C9113; J0743; J1644; J2270; J2405; J2550; J3480; J3490; J7030; J7040; J7050; J7626